=== PATIENT | male | born 1975 | race Caucasian/White ===

== ENCOUNTER 2017-02-09 09:33 | Emergency (ER) | payer MEDICAID ==
[2017-02-09] MEDS ORDERED: KETOROLAC 30 MG/ML VIAL IM ONE (10:52)
[2017-02-09] MEDS ORDERED: MAGNESIUM HYDROXIDE/AL HYDROX 30 ML, LIDOCAINE VISC 2% 200 MG PO ONE ×2 (10:52)
[2017-02-09 11:27] LABS: INFLUENZA A NEGATIVE (NEGATIVE); INFLUENZA B NEGATIVE (NEGATIVE)
--- NOTE | 2017-02-09 11:29 | Emergency Department Record ---
History of Present Illness - General Chief Complaint: Cough Stated Complaint: COUGH Time Seen by Provider: 02/09/17 10:43 Source: Patient Mode of Arrival: Ambulatory Limitations: No limitations - History of Present Illness Initial Comments: pt states he aspirated 2 days ago and now he is coughing and has pain w coughing that is burning. no fevers, sweats, chills. MD Complaint: Cough, Nasal congestion, Rhinorrhea Onset/Timin -: Days(s) Severity scale (1-10): 4 Consistency: Constant Improves With: Nothing Worsens With: Deep breaths Associated Symptoms: Denies other symptoms, Cough Treatments Prior to Arrival: Other - Related Data Home Medications Medication Instructions Recorded Confirmed Last Taken Multivitamin [Multi-Vitamin Daily] 1 each PO DAILY 11/01/14 02/09/17 02/09/17 Milk Thistle 150 mg PO TID 06/04/15 02/09/17 02/09/17 Previous Rx's Medication Instructions Recorded Amoxicillin/Potassium Clav 1 each PO BID #20 tablet 02/09/17 [Augmentin 875Mg/125Mg] Allergies Allergy/AdvReac Type Severity Reaction Status Date / Time atorvastatin calcium AdvReac Mild BODY ACHES Verified 09/29/16 22:02 [From Lipitor] ciprofloxacin [From Cipro] AdvReac Mild VOMITING Verified 09/29/16 22:02 ciprofloxacin HCl AdvReac Mild VOMITING Verified 09/29/16 22:02 [From Cipro] sulfamethoxazole AdvReac Mild VOMITING Verified 09/29/16 22:02 [From Bactrim] trimethoprim [From Bactrim] AdvReac Mild VOMITING Verified 09/29/16 22:02 Travel Screening - Travel/Exposure Within Last 30 Days Have you traveled within the last 30 days?: No - Travel/Exposure Within Last Year Have you traveled outside the [place] in the last year?: No - Additonal Travel Details Have you been exposed to anyone with a communicable illness?: No - Travel Symptoms Symptom Screening: None Review of Systems Reviewed: No additional complaints except as noted below Constitutional: Reports: As per HPI. Denies: Chills, Fever, Malaise, Night sweats, Weakness, Weight change Eyes: Reports: As per HPI. Denies: Eye discharge, Eye pain, Photophobia, Vision change ENT: Reports: As per HPI. Denies: Congestion, Dental pain, Ear pain, Epistaxis , Hearing loss, Throat pain Respiratory: Reports: As per HPI. Denies: Cough, Dyspnea, Hemoptysis, Stridor, Wheezes Cardiovascular: Reports: As per HPI. Denies: Arrhythmia, Chest pain, Dyspnea on exertion, Edema, Murmurs, Orthopnea, Palpitations, Paroxysmal nocturnal dyspnea, Rheumatic Fever, Syncope Endocrine: Reports: As per HPI. Denies: Fatigue, Heat or cold intolerance, Polydipsia, Polyuria Gastrointestinal: Reports: As per HPI. Denies: Abdominal pain, Constipation, Diarrhea, Hematemesis, Hematochezia, Melena, Nausea, Vomiting Genitourinary: Reports: As per HPI. Denies: Dysuria, Frequency, Hematuria, Incontinence, Retention, Testicular pain, Testicular mass, Urgency Musculoskeletal: Reports: As per HPI. Denies: Arthralgia, Back pain, Gout, Joint swelling, Myalgia, Neck pain Skin: Reports: As per HPI. Denies: Bruising, Change in color, Change in hair/ nails, Lesions, Pruritus, Rash Neurological: Reports: As per HPI. Denies: Abnormal gait, Confusion, Headache, Numbness, Paresthesias, Seizure, Tingling, Tremors, Vertigo, Weakness Psychiatric: Reports: As per HPI. Denies: Anxiety, Auditory hallucinations, Depression, Homicidal thoughts, Suicidal thoughts, Visual hallucinations Hematological/Lymphatic: Reports: As per HPI. Denies: Anemia, Blood Clots, Easy bleeding, Easy bruising, Swollen glands Past Medical History - SOCIAL HISTORY Smoking Status: Current every day smoker Alcohol Use: None Drug Use: None - RESPIRATORY Hx Respiratory Disorders: No - CARDIOVASCULAR Hx Cardio Disorders: No - NEURO Hx Neuro Disorders: No - GI Hx GI Disorders: Yes Hx Reflux: Yes Hx Hepatitis/Jaundice: Yes (Hep C) Hx Hiatal Hernia: Yes - Hx Genitourinary Disorders: Yes Comment:: one kidney-L - ENDOCRINE Hx Endocrine Disorders: No - MUSCULOSKELETAL Hx Musculoskeletal Disorders: No - PSYCH Hx Psych Problems: Yes Hx Depression: Yes - HEMATOLOGY/ONCOLOGY Hx Hematology/Oncology Disorders: No Family Medical History Any Significant Family History?: Yes Hx Cancer: Mother Hx Diabetes: Father Physical Exam - General General Appearance: Alert, Oriented x3, Cooperative, Mild distress - Head Head exam: Normal inspection - Eye Eye exam: Normal appearance, PERRL, EOMI Pupils: Normal accommodation - ENT ENT exam: Normal exam, Mucous membranes moist, Normal external ear exam, Normal orophraynx Ear exam: Normal external inspection. negative: External canal tenderness Nasal Exam: Normal inspection. negative: Discharge, Sinus tenderness Mouth exam: Normal external inspection, Tongue normal Teeth exam: Normal inspection. negative: Dental caries Throat exam: Normal inspection. negative: Tonsillar erythema, Tonsillar exudate - Neck Neck exam: Normal inspection, Full ROM. negative: Tenderness - Respiratory Respiratory exam: Normal lung sounds bilaterally. negative: Respiratory distress - Cardiovascular Cardiovascular Exam: Regular rate, Normal rhythm, Normal heart sounds - GI/Abdominal GI/Abdominal exam: Soft, Normal bowel sounds. negative: Tenderness - Rectal Rectal exam: Deferred - exam: Deferred - Extremities Extremities exam: Normal inspection, Full ROM, Normal capillary refill. negative: Tenderness - Back Back exam: Reports: Normal inspection, Full ROM. Denies: Muscle spasm, Rash noted, Tenderness - Neurological Neurological exam: Alert, CN II-XII intact, Normal gait, Oriented X3 - Psychiatric Psychiatric exam: Normal affect, Normal mood - Skin Skin exam: Dry, Intact, Normal color, Warm Course Vital Signs 02/09/17 10:27 Temperature 98.2 F Pulse Rate 85 Respiratory 20 Rate Blood Pressure 156/94 Pulse Ox 96 Disposition Disposition: Discharge Clinical Impression: Bronchitis Aspiration into respiratory tract Qualifiers: Encounter type: initial encounter Qualified Code(s): T17.908A - Unspecified foreign body in respiratory tract, part unspecified causing other injury, initial encounter Disposition: Home, Self-Care Condition: (1) Good Instructions: Acute Bronchitis (ED) Additional Instructions: follow up with family doctor. return sooner if worse. Prescriptions: Amoxicillin/Potassium Clav [Augmentin 875Mg/125Mg] 1 each PO BID #20 tablet Forms: Patient Portal Access
--- NOTE | 2017-02-12 08:34 | RADIOLOGY REPORT ---
EXAM: CHEST, TWO VIEWS HISTORY: ACUTE NONPRODUCTIVE COUGH. TECHNIQUE: Two views of the chest were obtained. Comparison: Chest x-ray 10/10/07. FINDINGS: The lungs are hyperinflated, otherwise clear. The cardiac silhouette is unremarkable. The diaphragm is slightly flattened. The osseous structures are unremarkable. IMPRESSION: EMPHYSEMA. NO ACUTE INTRATHORACIC PROCESS. JOB NUMBER: [id number] MTDD
== END 2017-02-09 11:44 | disposition home or self-care (01) ==
LOC: ER 09:33
DX: J20.9 Acute bronchitis, unspecified (principal); F17.210 Nicotine dependence, cigarettes, uncomplicated
CPT/HCPCS: 99283; 96372; 99284; 87400; 71020; J1885

== ENCOUNTER 2017-09-28 15:28 | Emergency (ER) | payer MEDICAID ==
--- NOTE | 2017-09-28 15:44 | Emergency Department Record ---
History of Present Illness - General Chief Complaint: Back Pain/Injury Stated Complaint: LOWER BACK PAIN Time Seen by Provider: 09/28/17 15:37 Source: Patient Mode of Arrival: Ambulatory Limitations: No limitations - History of Present Illness Initial Comments: 42 yo male presents with low back pain for two days. He reports he was walking on stairs and mis stepped. He did not fall but he twisted his back. His pain has been present since then. The pain is in the lumbar area and radiates to the hips. No weakness. No changes in bowel or bladder function. !0 years ago he did have lumbar surgery at L4 for a herniated disc. No intermediate manager issues. PCP [place]. Delmy Espinoza MD Complaint: Back pain, Back injury Onset/Timin -: Days(s) (2) Place: Work Severity: Moderate Quality: Aching Consistency: Constant Improves With: Sitting upright Worsens With: Movement, Walking Context: Fall, Turning/twisting Associated Symptoms: Denies other symptoms - Related Data Home Medications Medication Instructions Recorded Confirmed Last Taken Omeprazole 40 mg PO DAILY 09/28/17 09/28/17 1 Day Ago ~09/27/17 Previous Rx's Medication Instructions Recorded Cyclobenzaprine HCl [Flexeril] 10 mg PO TID #20 tablet 09/28/17 Hydrocodone/Acetaminophen [[place] 1 each PO Q8H #12 tablet 09/28/17 5-325 Tablet] Methylprednisolone [Medrol Dose 4 mg PO DAILY #1 tab.ds.pk 09/28/17 Pack] Allergies Allergy/AdvReac Type Severity Reaction Status Date / Time atorvastatin calcium AdvReac Mild BODY ACHES Verified 09/28/17 15:38 [From Lipitor] ciprofloxacin [From Cipro] AdvReac Mild VOMITING Verified 09/28/17 15:38 ciprofloxacin HCl AdvReac Mild VOMITING Verified 09/28/17 15:38 [From Cipro] sulfamethoxazole AdvReac Mild VOMITING Verified 09/28/17 15:38 [From Bactrim] trimethoprim [From Bactrim] AdvReac Mild VOMITING Verified 09/28/17 15:38 Travel Screening - Travel/Exposure Within Last 30 Days Have you traveled within the last 30 days?: No - Travel/Exposure Within Last Year Have you traveled outside the [place] in the last year?: No - Additonal Travel Details Have you been exposed to anyone with a communicable illness?: No - Travel Symptoms Symptom Screening: None Review of Systems Constitutional: Denies: Chills, Fever, Malaise, Weakness Eyes: Denies: Eye discharge ENT: Denies: Congestion, Throat pain Respiratory: Denies: Cough Cardiovascular: Denies: Chest pain, Syncope Endocrine: Denies: Fatigue Gastrointestinal: Denies: Abdominal pain, Diarrhea, Nausea, Vomiting Genitourinary: Denies: Dysuria, Frequency, Hematuria, Incontinence, Retention, Urgency Musculoskeletal: Reports: Back pain. Denies: Arthralgia, Joint swelling, Myalgia, Neck pain, Other Skin: Denies: Change in color Neurological: Denies: Abnormal gait, Confusion, Headache, Numbness, Paresthesias , Tingling, Tremors, Vertigo, Weakness Psychiatric: Denies: Anxiety Hematological/Lymphatic: Denies: Blood Clots, Easy bleeding, Easy bruising, Swollen glands Past Medical History - SOCIAL HISTORY Smoking Status: Current every day smoker Alcohol Use: None Drug Use: None - RESPIRATORY Hx Respiratory Disorders: No - CARDIOVASCULAR Hx Cardio Disorders: No - NEURO Hx Neuro Disorders: No - GI Hx GI Disorders: Yes Hx Reflux: Yes Hx Hepatitis/Jaundice: Yes (Hep C) Hx Hiatal Hernia: Yes - Hx Genitourinary Disorders: Yes Comment:: one kidney-L - ENDOCRINE Hx Endocrine Disorders: No - MUSCULOSKELETAL Hx Musculoskeletal Disorders: No - PSYCH Hx Psych Problems: Yes Hx Depression: Yes - HEMATOLOGY/ONCOLOGY Hx Hematology/Oncology Disorders: No Family Medical History Any Significant Family History?: Yes Hx Cancer: Mother Hx Diabetes: Father Physical Exam - General General Appearance: Alert, Oriented x3, Cooperative, No acute distress Limitations: No limitations - Head Head exam: Normal inspection - Eye Eye exam: Normal appearance. negative: Conjunctival injection - ENT ENT exam: Normal exam Ear exam: Normal external inspection Nasal Exam: Normal inspection Mouth exam: Normal external inspection - Neck Neck exam: Normal inspection - Rectal Rectal exam: Deferred - exam: Deferred - Extremities Extremities exam: Full ROM. negative: Calf tenderness, Joint swelling, Normal capillary refill, Pedal edema, Tenderness - Back Back exam: Reports: Normal inspection, Muscle spasm, Paraspinal tenderness, Tenderness. Denies: CVA tenderness (R), CVA tenderness (L), Rash noted, Vertebral tenderness Image of Body Front/Back: 1 - mild paraspinal tenderness bilateral - Neurological Neurological exam: Alert, Normal gait, Oriented X3, Other (Foot flexion and extension intact, steady gait, no foot drop). negative: Abnormal gait, Altered , Motor sensory deficit - Psychiatric Psychiatric exam: Normal affect, Normal mood - Skin Skin exam: Dry, Intact, Normal color, Warm Course Vital Signs 09/28/17 15:31 Temperature 98.1 F Pulse Rate 77 Respiratory 18 Rate Blood Pressure 142/94 Pulse Ox 97 - Reevaluation(s) Reevaluation #1: No neurologic findings on examination or by history DC home with supportive care. 09/28/17 15:42 Disposition Disposition: Discharge Clinical Impression: Lumbar spine strain Qualifiers: Encounter type: initial encounter Qualified Code(s): S39.012A - Strain of muscle, fascia and tendon of lower back, initial encounter Disposition: Home, Self-Care Condition: (1) Good Instructions: Low Back Strain (ED) Additional Instructions: Return to the ER if worse, uncontrolled pain, weakness, numbness or any new concerns Follow up with your doctor in the next week if the pain continues Prescriptions: Cyclobenzaprine HCl [Flexeril] 10 mg PO TID #20 tablet Hydrocodone/Acetaminophen [[place] 5-325 Tablet] 1 each PO Q8H #12 tablet Methylprednisolone [Medrol Dose Pack] 4 mg PO DAILY #1 tab.ds.pk Time of Disposition: 15:45 Quality - Quality Measures Quality Measures: N/A - Blood Pressure Screening Does Patient Have Any of the Following: No Blood Pressure Classification: Hypertensive Reading Systolic Measurement: 142 Diastolic Measurement: 94 Screening for High Blood Pressure: < Pre-Hypertensive BP, F/U Documented > [ G8950] Pre-Hypertensive Follow-up Interventions: Referral to alternative/primary care provider.
== END 2017-09-28 15:53 | disposition home or self-care (01) ==
LOC: ER 15:28
DX: S39.012A Strain of muscle, fascia and tendon of lower back, initial encounter (principal); X50.0XXA Overexertion from strenuous movement or load, initial encounter; Y90.0 Blood alcohol level of less than 20 mg/100 ml
CPT/HCPCS: 99282

== ENCOUNTER 2017-10-04 10:08 | Emergency (ER) | payer MEDICAID ==
[2017-10-04] MEDS ORDERED: KETOROLAC 30 MG/ML VIAL IM ONE (10:28)
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
--- NOTE | 2017-10-05 19:36 | RADIOLOGY REPORT ---
EXAM: LUMBAR SPINE / AP LAT HISTORY: BACK PAIN. TECHNIQUE: AP and lateral views of the lumbar spine are performed. FINDINGS: There is normal vertebral body height. There is mild degenerative change at L5-S1. No spondylolysis or listhesis. IMPRESSION: MILD DEGENERATIVE CHANGE AT L5-S1 LEVEL. THE REMAINDER OF THE EXAMINATION IS UNREMARKABLE. JOB NUMBER: [id number] MTDD
== END 2017-10-04 11:35 | disposition home or self-care (01) ==
LOC: ER 10:08
DX: S39.012A Strain of muscle, fascia and tendon of lower back, initial encounter (principal); X50.0XXA Overexertion from strenuous movement or load, initial encounter; Y92.009 Unspecified place in unspecified non-institutional (private) residence as the place of occurrence of the external cause
CPT/HCPCS: 99283; 96372; 99284; 72100; J1885

== ENCOUNTER 2017-11-21 22:20 | Emergency (ER) | payer MEDICAID ==
[2017-11-21 23:04] LABS: BASO % 0.5 % (0-6); EOS % 2.1 % (0-6); GRAN % 67.4 % (47-80); HEMOGLOBIN 13.6 gm/dl (14.0-18.0); LYMPH % 16.8 % (16-45); MEAN CELL VOLUME 84.6 fl (81-97); MEAN CORPUSCULAR HEMOGLOBIN 29.5 pg (27-33); MEAN CORPUSCULAR HGB CONC 34.9 g/dl (32-36); MEAN PLATELET VOLUME 9.8 fl (7.4-10.4); MONO % 13.2 % (0-9); PLATELET COUNT 207 K/uL (130-400); RED BLOOD COUNT 4.61 M/uL (4.40-5.70); RED CELL DISTRIBUTION WIDTH 13.1 % (11.5-14.5); WHITE BLOOD COUNT W/O DIFF 5.8 K/uL (4.2-12.2)
[2017-11-21] MEDS ORDERED: 0.9 % SODIUM CHLORIDE 1,000 ML BAG IV ONE (23:11)
[2017-11-21 23:18] LABS: BLOOD UREA NITROGEN 22 mg/dL (6-20); EST GLOMERULAR FILTRATION RATE > 60 mL/min
[2017-11-21 23:21] LABS: GLUCOSE,RANDOM 114 mg/dL (74-109)
[2017-11-21 23:23] LABS: ALT/SGPT 101 U/L (<41); AST/SGOT 108 U/L (10.0-50.0)
[2017-11-21 23:24] LABS: ALB/GLOB RATIO 1.2 (1.1-1.8); ALBUMIN 3.8 g/dL (4.0-5.0); ALKALINE PHOSPHATASE 104 U/L (40-129)
--- NOTE | 2017-11-21 23:26 | Emergency Department Record ---
History of Present Illness - General Chief Complaint: Dizziness Stated Complaint: MON, LIGHT HEADED FEELS WOZZIE Time Seen by Provider: 11/21/17 22:48 Source: Patient Mode of Arrival: Ambulatory Limitations: No limitations - History of Present Illness Initial Comments: pt states he feels light headed and 'woozy'. he states it started a few hours ago. he states turning his head make s it worse. he denies the room spinning and denies difficulty he has had no injury to his head and has no new meds.walking or weakness or numbness. he has no headache. Onset/Timin -: Hour(s) Timing: Sudden onset Description: Lightheadedness, Nausea, Off-balance History of Same: No Severity: Mild Improves With: Remaining still Worsens With: Position Associated Symptoms: Cough, Fever/chills, Weakness - [place] Coma Scale Eye Response: (4) Open spontaneously Motor Response: (6) Obeys commands Verbal Response: (5) Oriented Cm Total: 15 - Symptoms of Stroke Symptoms of stroke: Dizziness - Related Data Home Medications Medication Instructions Recorded Confirmed Last Taken Omeprazole 20 mg PO DAILY 11/21/17 11/21/17 11/21/17 Allergies Allergy/AdvReac Type Severity Reaction Status Date / Time atorvastatin calcium AdvReac Mild BODY ACHES Verified 10/04/17 10:14 [From Lipitor] sulfamethoxazole AdvReac Mild VOMITING Verified 10/04/17 10:14 [From Bactrim] trimethoprim [From Bactrim] AdvReac Mild VOMITING Verified 10/04/17 10:14 Travel Screening - Travel/Exposure Within Last 30 Days Have you traveled within the last 30 days?: No - Travel Symptoms Symptom Screening: Weakness, Chills Review of Systems Reviewed: No additional complaints except as noted below Constitutional: Reports: As per HPI. Denies: Chills, Fever, Malaise, Night sweats, Weakness, Weight change Eyes: Reports: As per HPI. Denies: Eye discharge, Eye pain, Photophobia, Vision change ENT: Reports: As per HPI. Denies: Congestion, Dental pain, Ear pain, Epistaxis , Hearing loss, Throat pain Respiratory: Reports: As per HPI. Denies: Cough, Dyspnea, Hemoptysis, Stridor, Wheezes Cardiovascular: Reports: As per HPI. Denies: Arrhythmia, Chest pain, Dyspnea on exertion, Edema, Murmurs, Orthopnea, Palpitations, Paroxysmal nocturnal dyspnea, Rheumatic Fever, Syncope Endocrine: Reports: As per HPI. Denies: Fatigue, Heat or cold intolerance, Polydipsia, Polyuria Gastrointestinal: Reports: As per HPI, Nausea. Denies: Abdominal pain, Constipation, Diarrhea, Hematemesis, Hematochezia, Melena, Vomiting Genitourinary: Reports: As per HPI. Denies: Dysuria, Frequency, Hematuria, Incontinence, Retention, Testicular pain, Testicular mass, Urgency Musculoskeletal: Reports: As per HPI. Denies: Arthralgia, Back pain, Gout, Joint swelling, Myalgia, Neck pain Skin: Reports: As per HPI. Denies: Bruising, Change in color, Change in hair/ nails, Lesions, Pruritus, Rash Neurological: Reports: As per HPI, Other (lightheadedness). Denies: Abnormal gait, Confusion, Headache, Numbness, Paresthesias, Seizure, Tingling, Tremors, Vertigo, Weakness Psychiatric: Reports: As per HPI. Denies: Anxiety, Auditory hallucinations, Depression, Homicidal thoughts, Suicidal thoughts, Visual hallucinations Hematological/Lymphatic: Reports: As per HPI. Denies: Anemia, Blood Clots, Easy bleeding, Easy bruising, Swollen glands Past Medical History - SOCIAL HISTORY Smoking Status: Current every day smoker Alcohol Use: None Drug Use: None - RESPIRATORY Hx Respiratory Disorders: Yes Hx Asthma: Yes - CARDIOVASCULAR Hx Cardio Disorders: No - NEURO Hx Neuro Disorders: No - GI Hx GI Disorders: Yes Hx Reflux: Yes Hx Hepatitis/Jaundice: Yes (Hep C) Hx Hiatal Hernia: Yes - Hx Genitourinary Disorders: Yes Comment:: one kidney-L - ENDOCRINE Hx Endocrine Disorders: No - MUSCULOSKELETAL Hx Musculoskeletal Disorders: No - PSYCH Hx Psych Problems: Yes Hx Depression: Yes - HEMATOLOGY/ONCOLOGY Hx Hematology/Oncology Disorders: No Family Medical History Any Significant Family History?: Yes Family Hx Comment (NOT TO BE USED IN PLACE OF ITEMS BELOW): Sister - Mckeon's syndrome Hx Cancer: Mother, Children *Cancer Comment: son with Leukemia Hx Diabetes: Father Physical Exam - General General Appearance: Alert, Oriented x3, Cooperative, Mild distress - Head Head exam: Normal inspection - Eye Eye exam: Normal appearance, PERRL, EOMI Pupils: Normal accommodation - ENT ENT exam: Normal exam, Mucous membranes moist, Normal external ear exam, Normal orophraynx, TM's normal bilaterally Ear exam: Normal external inspection. negative: External canal tenderness Nasal Exam: Normal inspection. negative: Discharge, Sinus tenderness Mouth exam: Normal external inspection, Tongue normal Teeth exam: Normal inspection. negative: Dental caries Throat exam: Normal inspection. negative: Tonsillar erythema, Tonsillar exudate - Neck Neck exam: Normal inspection, Full ROM. negative: Tenderness - Respiratory Respiratory exam: Normal lung sounds bilaterally. negative: Respiratory distress - Cardiovascular Cardiovascular Exam: Regular rate, Normal rhythm, Normal heart sounds - GI/Abdominal GI/Abdominal exam: Soft, Normal bowel sounds. negative: Tenderness - Rectal Rectal exam: Deferred - exam: Deferred - Extremities Extremities exam: Normal inspection, Full ROM, Normal capillary refill. negative: Tenderness - Back Back exam: Reports: Normal inspection, Full ROM. Denies: Muscle spasm, Rash noted, Tenderness - Neurological Neurological exam: Alert, CN II-XII intact, Normal gait, Oriented X3 - Psychiatric Psychiatric exam: Normal affect, Normal mood - Skin Skin exam: Dry, Intact, Normal color, Warm Course Vital Signs 11/21/17 11/21/17 22:27 22:28 Temperature 98.3 F 98.3 F Pulse Rate [ 91 H Pulse Ox Probe] Respiratory 20 Rate Blood Pressure 146/94 [Left Arm] Pulse Ox 98 - Reevaluation(s) Reevaluation #1: 11/22/17 00:47 pt feels better Medical Decision Making - Lab Data Result diagrams: 11/21/17 22:45 11/21/17 22:45 Lab Results 11/21/17 Range/Units 22:45 WBC 5.8 (4.2-12.2) K/uL RBC 4.61 (4.40-5.70) M/uL Hgb 13.6 L (14.0-18.0) gm/dl Hct 39.0 L (42.0-52.0) % MCV 84.6 (81-97) fl MCH 29.5 (27-33) pg MCHC 34.9 (32-36) g/dl RDW 13.1 (11.5-14.5) % Plt Count 207 (130-400) K/uL MPV 9.8 (7.4-10.4) fl Gran % 67.4 (47-80) % Lymphocytes % 16.8 (16-45) % Monocytes % 13.2 H (0-9) % Eosinophils % 2.1 (0-6) % Basophils % 0.5 (0-6) % Disposition Disposition: Discharge Clinical Impression: Lightheaded, Wooziness Disposition: Home, Self-Care Condition: (1) Good Instructions: Dizziness (ED) Additional Instructions: follow up with family doctor. return sooner if worse. push fluids. rest Forms: Patient Portal Access Quality - Quality Measures Quality Measures: N/A - Blood Pressure Screening Does Patient Have Any of the Following: No Blood Pressure Classification: Pre-Hypertensive BP Reading Systolic Measurement: 139 Diastolic Measurement: 87 Screening for High Blood Pressure: < Pre-Hypertensive BP, F/U Documented > [ G8950] Pre-Hypertensive Follow-up Interventions: Follow-up with rescreen every year.
[2017-11-21 23:33] LABS: URINE APPEARANCE CLEAR; URINE BILIRUBIN NEGATIVE (NEGATIVE); URINE BLOOD NEGATIVE (NEGATIVE); URINE COLOR YELLOW; URINE GLUCOSE (UA) NEGATIVE (NEGATIVE); URINE KETONE NEGATIVE (NEGATIVE); URINE LEUKOCYTE ESTERASE NEGATIVE (NEGATIVE); URINE NITRITE NEGATIVE (NEGATIVE); URINE PROTEIN NEGATIVE (NEGATIVE)
[2017-11-21 23:35] LABS: AMPHETAMINE SCREEN URINE NOT DETECTED; BARBITURATE SCREEN URINE NOT DETECTED; BENZODIAZEPINE SCREEN URINE NOT DETECTED; COCAINE SCREEN URINE NOT DETECTED; METHADONE SCREEN URINE NOT DETECTED; METHAMPHETAMINE SCREEN NOT DETECTED; OPIATE SCREEN URINE NOT DETECTED; OXYCODONE SCREEN URINE NOT DETECTED; PHENCYCLIDINE SCREEN URINE NOT DETECTED; PROPOXYPHENE SCREEN URINE NOT DETECTED; THC SCREEN URINE NOT DETECTED; TRICYCLIC ANTIDEPRESSANT SCRN NOT DETECTED
[2017-11-22] MEDS ORDERED: ACETAMINOPHEN 500 MG TABLET PO ONE (00:20)
[2017-11-22] MEDS ORDERED: KETOROLAC 30 MG/ML VIAL IVP ONE (00:21)
--- NOTE | 2017-11-23 18:05 | CT SCAN REPORT ---
EXAM: CT SCAN HEAD WO CONTRAST HISTORY: LIGHTHEADEDNESS. MENTAL STATUS CHANGE. TECHNIQUE: Routine noncontrast CT examination of the head. COMPARISON: None. FINDINGS: The ventricles and subarachnoid spaces are normal in size. No area of abnormally increased or decreased attenuation is noted throughout the brain substance. No abnormal extraaxial fluid collection is seen. No skull fracture is identified. The visualized paranasal sinuses and mastoid air cells are clear with the exception of opacification of a single left ethmoid air cell. The orbits, as visualized, are unremarkable. IMPRESSION: 1. NEGATIVE NONCONTRAST CT APPEARANCE OF THE BRAIN. 2. OPACIFICATION OF A SINGLE LEFT ETHMOID AIR CELL. JOB NUMBER: [id number] MTDD
== END 2017-11-22 01:05 | disposition home or self-care (01) ==
LOC: ER 22:20
DX: R42 Dizziness and giddiness (principal); R41.82 Altered mental status, unspecified; R11.0 Nausea; R05 Cough; R53.1 Weakness
CPT/HCPCS: 99284 ×2; 96374; 96361; 85025; 80053; 81003; 80305; 70450; 93005; 93010; G0480; J1885; 80320; J7030

== ENCOUNTER 2017-11-22 21:03 | Emergency (ER) | payer MEDICAID ==
[2017-11-22] MEDS ORDERED: ACETAMINOPHEN 500 MG TABLET PO ONE (21:35)
[2017-11-22] MEDS ORDERED: KETOROLAC 30 MG/ML VIAL IVP ONE (21:35)
--- NOTE | 2017-11-22 21:39 | Emergency Department Record ---
History of Present Illness - General Chief Complaint: Shortness of breath Stated Complaint: ROSA Time Seen by Provider: 11/22/17 21:04 Source: Patient Mode of Arrival: Ambulatory Limitations: No limitations - History of Present Illness Initial Comments: 42 yo male presents to ED for evaluation of shortness and breath and fever symptoms tonight. Patient reports that he was seen last night for dizziness symptoms and "feeling woozy", reports that his cough was not as sever last night. Patient reports chills, body aches, and weakness today. Patient reports a history of chronic back pain and hepatitis C. MD Complaint: Shortness of breath Onset/Timin -: Days(s) Severity: Moderate Consistency: Constant Worsens With: Nothing Known History Of: Asthma, Recurrent pneumonia Associated Symptoms: Cough, Fever Treatments Prior to Arrival: None - Related Data Home Oxygen Therapy: No Previous Rx's Medication Instructions Recorded Doxycycline Hyclate [Doxycycline] 200 mg PO BID #18 cap 11/22/17 Allergies Allergy/AdvReac Type Severity Reaction Status Date / Time atorvastatin calcium AdvReac Mild BODY ACHES Verified 10/04/17 10:14 [From Lipitor] sulfamethoxazole AdvReac Mild VOMITING Verified 10/04/17 10:14 [From Bactrim] trimethoprim [From Bactrim] AdvReac Mild VOMITING Verified 10/04/17 10:14 Travel Screening - Travel/Exposure Within Last 30 Days Have you traveled within the last 30 days?: No Review of Systems Constitutional: Reports: Chills, Fever, Malaise, Weakness. Denies: Night sweats Eyes: Denies: Eye discharge, Eye pain ENT: Reports: Congestion. Denies: Ear pain, Epistaxis Respiratory: Reports: Cough, Dyspnea Cardiovascular: Denies: Chest pain, Edema Endocrine: Reports: Fatigue. Denies: Heat or cold intolerance Gastrointestinal: Denies: Abdominal pain, Vomiting Genitourinary: Denies: Testicular pain, Testicular mass Musculoskeletal: Reports: Myalgia. Denies: Arthralgia, Back pain, Gout, Joint swelling Skin: Denies: Bruising, Change in color Neurological: Reports: Headache. Denies: Abnormal gait, Confusion, Seizure Psychiatric: Denies: Anxiety Hematological/Lymphatic: Denies: Anemia, Blood Clots Past Medical History - SOCIAL HISTORY Smoking Status: Current every day smoker Alcohol Use: None Drug Use: None - RESPIRATORY Hx Respiratory Disorders: Yes Hx Asthma: Yes - CARDIOVASCULAR Hx Cardio Disorders: No - NEURO Hx Neuro Disorders: No - GI Hx GI Disorders: Yes Hx Reflux: Yes Hx Hepatitis/Jaundice: Yes (Hep C) Hx Hiatal Hernia: Yes - Hx Genitourinary Disorders: Yes Comment:: one kidney-L - ENDOCRINE Hx Endocrine Disorders: No - MUSCULOSKELETAL Hx Musculoskeletal Disorders: No - PSYCH Hx Psych Problems: Yes Hx Depression: Yes - HEMATOLOGY/ONCOLOGY Hx Hematology/Oncology Disorders: No Family Medical History Any Significant Family History?: Yes Family Hx Comment (NOT TO BE USED IN PLACE OF ITEMS BELOW): Sister - Mckeon's syndrome Hx Cancer: Mother, Children *Cancer Comment: son with Leukemia Hx Diabetes: Father Physical Exam - General General Appearance: Alert, Oriented x3, Cooperative, Moderate distress Limitations: No limitations - Head Head exam: Atraumatic, Normocephalic, Normal inspection Head exam detail: negative: Abrasion, Contusion, Cedillo's sign, General tenderness, Hematoma, Laceration - Eye Eye exam: Normal appearance. negative: Conjunctival injection, Periorbital swelling, Periorbital tenderness, Scleral icterus - ENT Ear exam: negative: Auricular hematoma, Auricular trauma Nasal Exam: negative: Active bleeding, Discharge, Dried blood, Foreign body Mouth exam: negative: Drooling, Laceration, Muffled voice, Tongue elevation - Neck Neck exam: Normal inspection. negative: Meningismus, Tenderness - Respiratory Respiratory exam: negative: Rales, Respiratory distress, Rhonchi, Stridor - Cardiovascular Cardiovascular Exam: Normal rhythm, Normal heart sounds, Tachycardia - GI/Abdominal GI/Abdominal exam: Soft. negative: Rebound, Rigid, Tenderness - Rectal Rectal exam: Deferred - exam: Deferred - Extremities Extremities exam: Normal inspection. negative: Pedal edema, Tenderness - Back Back exam: Denies: CVA tenderness (R), CVA tenderness (L) - Neurological Neurological exam: Alert, Normal gait, Oriented X3 - Psychiatric Psychiatric exam: Normal affect, Normal mood - Skin Skin exam: Normal color. negative: Abrasion Type of lesion: negative: abrasion Course Vital Signs 11/22/17 11/22/17 21:06 21:14 Temperature 100.8 F H Pulse Rate 107 H Pulse Rate [ 113 H [employer] ] Respiratory 26 H 20 Rate Blood Pressure 136/97 [Left Arm] Pulse Ox 94 L 98 - Reevaluation(s) Reevaluation #1: 11/22/17 21:40 EKG: Sinus tachycardia normal intervals, low voltage anteriorly T wave inversions V1-V3 Overall unchanged from 11/21/17 Reevaluation #2: 11/22/17 22:24 CXR: No acute process Laboratory studies were reviewed, mild elevation AST/ALT c/w hepatitis, labs are otherwise grossly unremarkable for an acute process. UA pending. Reevaluation #3: 11/22/17 23:12 UA reviewed and appears negative for an acute process. Temperature is down to 99.3, pulse improved to 98. Will treat for probable CAP with doxycycline with instructions to return in 3-5 days as directed. Medical Decision Making - Lab Data Result diagrams: 11/22/17 21:40 11/22/17 21:40 Disposition Disposition: Discharge Clinical Impression: Fever Qualifiers: Fever type: unspecified Qualified Code(s): R50.9 - Fever, unspecified CAP (community acquired pneumonia) Qualifiers: Laterality: unspecified laterality Qualified Code(s): J18.9 - Pneumonia, unspecified organism Disposition: Home, Self-Care Condition: (2) Stable Instructions: Community Acquired Pneumonia (ED) Additional Instructions: Return to ED if your symptoms worsen or if you have any concerns. Doxycycline as directed. Follow-up with your family doctor in 3-5 days as directed. Prescriptions: Doxycycline Hyclate [Doxycycline] 200 mg PO BID #18 cap Forms: Patient Portal Access Time of Disposition: 23:14 Quality - Quality Measures Quality Measures: N/A - Blood Pressure Screening Does Patient Have Any of the Following: No Blood Pressure Classification: Pre-Hypertensive BP Reading Systolic Measurement: 131 Diastolic Measurement: 81 Screening for High Blood Pressure: < Pre-Hypertensive BP, F/U Documented > [ G8950] Pre-Hypertensive Follow-up Interventions: Referral to alternative/primary care provider.
[2017-11-22] MEDS ORDERED: 0.9 % SODIUM CHLORIDE 1000ML 1,000 ML IV SCH (21:45)
[2017-11-22 21:47] LABS: INFLUENZA A NEGATIVE (NEGATIVE); INFLUENZA B NEGATIVE (NEGATIVE)
[2017-11-22 21:51] LABS: BASO % 0.4 % (0-6); EOS % 1.2 % (0-6); GRAN % 76.3 % (47-80); HEMOGLOBIN 13.8 gm/dl (14.0-18.0); LYMPH % 11.3 % (16-45); MEAN CELL VOLUME 84.2 fl (81-97); MEAN CORPUSCULAR HEMOGLOBIN 29.8 pg (27-33); MEAN CORPUSCULAR HGB CONC 35.4 g/dl (32-36); MEAN PLATELET VOLUME 9.8 fl (7.4-10.4); MONO % 10.8 % (0-9); PLATELET COUNT 206 K/uL (130-400); RED BLOOD COUNT 4.63 M/uL (4.40-5.70); RED CELL DISTRIBUTION WIDTH 13.1 % (11.5-14.5); WHITE BLOOD COUNT W/O DIFF 5.7 K/uL (4.2-12.2)
[2017-11-22 22:04] LABS: BLOOD UREA NITROGEN 20 mg/dL (6-20); CREATININE 1.1 mg/dL (0.7-1.2); EST GLOMERULAR FILTRATION RATE > 60 mL/min
[2017-11-22 22:06] LABS: GLUCOSE,RANDOM 116 mg/dL (74-109)
[2017-11-22 22:09] LABS: ALB/GLOB RATIO 1.2 (1.1-1.8); ALBUMIN 3.8 g/dL (4.0-5.0); ALKALINE PHOSPHATASE 87 U/L (40-129); ALT/SGPT 102 U/L (<41); AST/SGOT 117 U/L (10.0-50.0)
[2017-11-22 23:04] LABS: URINE APPEARANCE CLEAR; URINE BILIRUBIN NEGATIVE (NEGATIVE); URINE BLOOD NEGATIVE (NEGATIVE); URINE COLOR YELLOW; URINE GLUCOSE (UA) NEGATIVE (NEGATIVE); URINE KETONE TRACE (NEGATIVE); URINE LEUKOCYTE ESTERASE NEGATIVE (NEGATIVE); URINE NITRITE NEGATIVE (NEGATIVE); URINE PROTEIN NEGATIVE (NEGATIVE)
[2017-11-22] MEDS ORDERED: DOXYCYCLINE HYCLATE 100 MG CAPSULE PO ONE (23:17)
--- NOTE | 2017-11-23 20:45 | RADIOLOGY REPORT ---
EXAM: CHEST 2 VIEWS HISTORY: DIFFICULTY BREATHING. TECHNIQUE: Frontal and lateral views of the chest were performed. COMPARISON: 02/09/2017. FINDINGS: Heart size is normal. No pulmonary vascular congestion. No infiltrate or pleural effusion. The osseous structures are normal. IMPRESSION: NO ACUTE DISEASE PROCESS. JOB NUMBER: [id number] MTDD
== END 2017-11-22 23:26 | disposition home or self-care (01) ==
LOC: ER 21:03
DX: J18.9 Pneumonia, unspecified organism (principal); R06.02 Shortness of breath; R50.81 Fever presenting with conditions classified elsewhere; F17.210 Nicotine dependence, cigarettes, uncomplicated
CPT/HCPCS: 99284 ×2; 96374; 85025; 80053; 81003; 87400; 71046; 94640; 93005; 93010; J1885; J7030

== ENCOUNTER 2017-11-25 17:04 | Observation (INO) | payer MEDICAID ==
[2017-11-25] MEDS ORDERED: IPRATROPIUM/ALBUTEROL (0.5MG/3MG) NEB INH ONE (18:32)
--- NOTE | 2017-11-25 18:32 | Emergency Department Record ---
History of Present Illness - General Chief Complaint: Difficulty Breathing Stated Complaint: ROSA Time Seen by Provider: 11/25/17 17:09 Source: Patient Mode of Arrival: Wheelchair Limitations: No limitations - History of Present Illness Initial Comments: 42 yo male returns to ED for evaluation of difficulty ion breathing symptoms, recently seen and treated for possible early CAP. Patient reports that he has been using his inhaler several times a day without improvement, denies fevers/ chills but does report productive cough symptoms. Patient believes that his asthma may be acting up as a result. MD Complaint: Shortness of breath Onset/Timin -: Days(s) Severity: Moderate Consistency: Constant Improves With: Nothing Worsens With: Nothing Known History Of: Asthma Context: Recent URI Associated Symptoms: Denies other symptoms Treatments Prior to Arrival: Bronchodilator - Related Data Home Oxygen Therapy: No Home Medications Medication Instructions Recorded Confirmed Last Taken Nicotine [Nicotine Patch] 1 each TD ASDIR 11/25/17 11/25/17 11/25/17 Previous Rx's Medication Instructions Recorded Doxycycline Hyclate [Doxycycline] 200 mg PO BID #18 cap 11/22/17 Allergies Allergy/AdvReac Type Severity Reaction Status Date / Time atorvastatin calcium AdvReac Mild BODY ACHES Verified 11/25/17 17:14 [From Lipitor] sulfamethoxazole AdvReac Mild VOMITING Verified 11/25/17 17:14 [From Bactrim] trimethoprim [From Bactrim] AdvReac Mild VOMITING Verified 11/25/17 17:14 Travel Screening - Travel/Exposure Within Last 30 Days Have you traveled within the last 30 days?: No - Travel/Exposure Within Last Year Have you traveled outside the [place] in the last year?: No - Additonal Travel Details Have you been exposed to anyone with a communicable illness?: No - Travel Symptoms Symptom Screening: None Review of Systems Constitutional: Denies: Chills, Fever, Malaise, Night sweats Eyes: Denies: Eye discharge, Eye pain ENT: Reports: Congestion. Denies: Ear pain, Epistaxis Respiratory: Reports: Cough Cardiovascular: Denies: Chest pain, Dyspnea on exertion Endocrine: Denies: Fatigue, Heat or cold intolerance Gastrointestinal: Denies: Abdominal pain, Nausea, Vomiting Genitourinary: Denies: Incontinence, Retention Musculoskeletal: Denies: Arthralgia, Back pain Skin: Denies: Bruising, Change in color Neurological: Denies: Abnormal gait, Confusion, Headache, Tingling Psychiatric: Denies: Anxiety Hematological/Lymphatic: Denies: Anemia, Blood Clots Past Medical History - SOCIAL HISTORY Smoking Status: Current every day smoker Alcohol Use: None Drug Use: None - RESPIRATORY Hx Respiratory Disorders: Yes Hx Asthma: Yes Hx Pneumonia: Yes - CARDIOVASCULAR Hx Cardio Disorders: No - NEURO Hx Neuro Disorders: No - GI Hx GI Disorders: Yes Hx Reflux: Yes Hx Hepatitis/Jaundice: Yes (Hep C) Hx Hiatal Hernia: Yes - Hx Genitourinary Disorders: Yes Comment:: one kidney-L - ENDOCRINE Hx Endocrine Disorders: No - MUSCULOSKELETAL Hx Musculoskeletal Disorders: No - PSYCH Hx Psych Problems: Yes Hx Depression: Yes - HEMATOLOGY/ONCOLOGY Hx Hematology/Oncology Disorders: No Family Medical History Any Significant Family History?: No Family Hx Comment (NOT TO BE USED IN PLACE OF ITEMS BELOW): Sister - Mckeon's syndrome Hx Cancer: Mother, Children *Cancer Comment: son with Leukemia Hx Diabetes: Father Physical Exam - General General Appearance: Alert, Oriented x3, Cooperative, Mild distress Limitations: No limitations - Head Head exam: Atraumatic, Normocephalic, Normal inspection Head exam detail: negative: Abrasion, Contusion, Cedillo's sign, General tenderness, Hematoma, Laceration - Eye Eye exam: Normal appearance. negative: Conjunctival injection, Periorbital swelling, Periorbital tenderness, Scleral icterus - ENT Ear exam: negative: Auricular hematoma, Auricular trauma Nasal Exam: negative: Active bleeding, Discharge, Dried blood, Sinus tenderness Mouth exam: negative: Drooling, Laceration, Tongue elevation - Neck Neck exam: Normal inspection. negative: Meningismus, Tenderness - Respiratory Respiratory exam: Decreased breath sounds. negative: Respiratory distress, Rhonchi, Stridor, Wheezes - Cardiovascular Cardiovascular Exam: Regular rate, Normal rhythm, Normal heart sounds - GI/Abdominal GI/Abdominal exam: Soft. negative: Pulsatile mass, Rebound, Rigid, Tenderness - Rectal Rectal exam: Deferred - exam: Deferred - Extremities Extremities exam: Normal inspection. negative: Calf tenderness, Pedal edema, Tenderness - Back Back exam: Denies: CVA tenderness (R), CVA tenderness (L) - Neurological Neurological exam: Alert, Normal gait, Oriented X3 - Psychiatric Psychiatric exam: Normal affect, Normal mood - Skin Skin exam: negative: Abrasion Type of lesion: negative: abrasion Course Vital Signs 11/25/17 17:05 Temperature 98.1 F Pulse Rate 76 Respiratory 18 Rate Blood Pressure 117/75 Pulse Ox 96 - Reevaluation(s) Reevaluation #1: 11/25/17 19:17 Labs reviewed, WBC 3.5 with 47% lymphocytes. Mild elevation AST/ALT c.w hepatitis C. Influenza was negative 11/22/17. Reevaluation #2: 11/25/17 19:28 EKG: NSR 72 Normal axis, normal intervals T wave inversions V1-V3 Unchanged from 11/22/17 Reevaluation #3: 11/25/17 19:48 CXR: No acute process Patient was updated on all results, reports little improvement following duoneb and IV solumedrol. Discussed outpatient treatment for observation in the hospital as this is the patient's 3rd evaluation in the ED, will admit for further evaluation. Case was discussed with Dr. Beal, will admit for further evaluation. Medical Decision Making - Lab Data Result diagrams: 11/25/17 18:38 11/25/17 18:38 Disposition Disposition: Admit Clinical Impression: Asthma exacerbation Qualifiers: Asthma severity: mild Asthma persistence: intermittent Qualified Code(s): J45.21 - Mild intermittent asthma with (acute) exacerbation URI (upper respiratory infection) Qualifiers: URI type: unspecified URI Qualified Code(s): J06.9 - Acute upper respiratory infection, unspecified Disposition: Still a Patient at [facility] Decision to Admit: Admit from ER Decision to Admit Date: 11/25/17 Decision to Admit Time: 19:53 Condition: (2) Stable Forms: Patient Portal Access Time of Disposition: 19:53 Quality - Quality Measures Quality Measures: N/A - Blood Pressure Screening Does Patient Have Any of the Following: No Blood Pressure Classification: Normal BP Reading Systolic Measurement: 117 Diastolic Measurement: 75 Screening for High Blood Pressure: < Normal BP, F/U Not Required > [G8783]
[2017-11-25 18:45] LABS: BASO % 0.6 % (0-6); EOS % 8.6 % (0-6); GRAN % 32.3 % (47-80); HEMOGLOBIN 13.6 gm/dl (14.0-18.0); LYMPH % 47.8 % (16-45); MEAN CELL VOLUME 84.6 fl (81-97); MEAN CORPUSCULAR HEMOGLOBIN 29.5 pg (27-33); MEAN CORPUSCULAR HGB CONC 34.9 g/dl (32-36); MEAN PLATELET VOLUME 9.8 fl (7.4-10.4); MONO % 10.7 % (0-9); PLATELET COUNT 226 K/uL (130-400); RED BLOOD COUNT 4.61 M/uL (4.40-5.70); RED CELL DISTRIBUTION WIDTH 13.3 % (11.5-14.5); WHITE BLOOD COUNT W/O DIFF 3.5 K/uL (4.2-12.2)
[2017-11-25] MEDS ORDERED: METHYLPREDNISOLONE PF 125MG/VIAL IVP SCH (18:45)
[2017-11-25 18:55] LABS: BLOOD UREA NITROGEN 21 mg/dL (6-20); CREATININE 0.9 mg/dL (0.7-1.2); EST GLOMERULAR FILTRATION RATE > 60 mL/min
[2017-11-25 18:56] LABS: TOTAL PROTEIN 7.2 g/dL (6.6-8.7)
[2017-11-25 18:58] LABS: GLUCOSE,RANDOM 116 mg/dL (74-109)
[2017-11-25 19:01] LABS: ALB/GLOB RATIO 1.1 (1.1-1.8); ALBUMIN 3.7 g/dL (4.0-5.0); ALKALINE PHOSPHATASE 85 U/L (40-129); ALT/SGPT 79 U/L (<41); AST/SGOT 101 U/L (10.0-50.0)
[2017-11-25] MEDS ORDERED: 0.9 % SODIUM CHLORIDE 1000ML 1,000 ML IV PRN (20:50)
[2017-11-25] MEDS ORDERED: NICOTINE14 MG/24 HOUR PATCH TD SCH (20:50)
[2017-11-25] MEDS ORDERED: ALBUTEROL SULFATE (0.083%) 2.5 MG/3 ML NEB INH PRN (20:50)
[2017-11-25] MEDS ORDERED: DOXYCYCLINE HYCLATE 100 MG CAPSULE PO SCH (22:00)
[2017-11-25] MEDS ORDERED: PANTOPRAZOLE SODIUM 40 MG TABLET PO SCH (22:00)
[2017-11-25] MEDS: PROPRANOLOL HCL 10 MG TABLET PO SCH ×2 (22:29→22:35)
[2017-11-25] MEDS: IPRATROPIUM/ALBUTEROL (0.5MG/3MG) NEB INH SCH (22:44)
[2017-11-26] MEDS: IPRATROPIUM/ALBUTEROL (0.5MG/3MG) NEB INH SCH ×2 (06:11→09:56)
--- NOTE | 2017-11-26 07:24 | RADIOLOGY REPORT ---
EXAM: CHEST, TWO VIEWS HISTORY: SHORTNESS OF BREATH WITH EXERTION. TECHNIQUE: Upright PA and lateral views of the chest were obtained. Comparison: Two view chest radiographic examination dated 11/22/17. FINDINGS: The heart is normal in size and the pulmonary vasculature is nondilated. No new confluent air space opacity is seen nor is there costophrenic angle blunting or pneumothorax. Mild degenerative end plate changes are scattered throughout the visualized spine and there are mild degenerative changes of the shoulder girdles. IMPRESSION: NO CONVINCING EVIDENCE OF ACUTE CARDIOPULMONARY DISEASE WITHOUT SIGNIFICANT CHANGE SINCE 11/22/17. NOT MENTIONED ABOVE IS REDEMONSTRATION OF MINOR LINEAR SCARRING VERSUS ATELECTASIS AT THE ANTERIOR LUNG BASE LEVEL. THE LUNGS DO APPEAR MILDLY HYPERINFLATED. JOB NUMBER: [id number] [facility]
--- NOTE | 2017-11-26 07:34 | History & Physical ---
History of Present Illness - Date of Service Date of Service for History & Physical: 11/26/17 - History of Present Illness Admitting Diagnosis: Asthma exacerbation. URI History of Present Illness: Mr. London is a 42 y/o male with known mild persistent asthma who presents with increasing difficulty in breathing and wheezing over the pst several days. The patient has tried to use his albuterol rescue inhaler without relief. He denies cough, congestion, Travel Screening - Travel/Exposure Within Last 30 Days Have you traveled within the last 30 days?: No - Travel/Exposure Within Last Year Have you traveled outside the [place] in the last year?: No - Additonal Travel Details Have you been exposed to anyone with a communicable illness?: No - Travel Symptoms Symptom Screening: None Review of Systems Constitutional: Denies: Chills, Fever, Malaise, Night sweats Eyes: Denies: Eye discharge, Eye pain ENT: Reports: Congestion. Denies: Ear pain, Epistaxis Respiratory: Reports: Cough Cardiovascular: Denies: Chest pain, Dyspnea on exertion Endocrine: Denies: Fatigue, Heat or cold intolerance Gastrointestinal: Denies: Abdominal pain, Nausea, Vomiting Genitourinary: Denies: Incontinence, Retention Musculoskeletal: Denies: Arthralgia, Back pain Skin: Denies: Bruising, Change in color Neurological: Denies: Abnormal gait, Confusion, Headache, Tingling Psychiatric: Denies: Anxiety Hematological/Lymphatic: Denies: Anemia, Blood Clots Past Medical History - SOCIAL HISTORY Smoking Status: Former smoker Alcohol Use: None Drug Use: None - RESPIRATORY Hx Respiratory Disorders: Yes Hx Asthma: Yes Hx Bronchitis: Yes Hx COPD: No Hx Dyspnea: Yes Hx Pneumonia: Yes Hx Pulmonary Embolism: No Hx Sleep Apnea: No Hx Tuberculosis: No Hx of CPAP: No - CARDIOVASCULAR Hx Cardio Disorders: No Hx Abnormal EKG: No Hx Cardiac Cath: No Hx Chest Pain: No Hx CHF: No Hx Deep Vein Thrombosis: No Hx Edema: No Hx Heart Attack: No Hx Hypertension: No Hx Hypotension: No Hx Irregular Heartbeat: No Hx Palpitations: No Hx Pacemaker/Defib: No Hx Vascular Disease: No - NEURO Hx Neuro Disorders: No Hx Brain Tumor: No Hx CVA: No Hx Dementia: No Hx Dizziness: No Hx Headaches: No Hx Neuropathy: No Hx Parkinson's Disease: No Hx Seizures: No Hx Speech Problem: No Hx TIA: No - GI Hx GI Disorders: Yes Hx Abdominal Pain: No Hx Celiac Disease: No Hx Crohn's Disease: No Hx Diverticulitis: No Hx GI Bleed: No Hx Reflux: Yes Hx Hepatitis/Jaundice: Yes (Hep C) Hx Hiatal Hernia: Yes Hx Irritable Bowel: No Hx Liver Disease: Yes Hx Nausea/Vomiting: No Hx Obstructive Bowel: No Hx Pancreatitis: Yes Hx Rectal Bleeding: No Hx Ulcer: Yes Hx Wt Loss/Wt Gain: No Hx of Polyps: No - Hx Genitourinary Disorders: Yes Hx Bladder Problem: No Hx Dialysis: No Hx Kidney Stones: No Hx Prostate Problems: No Hx Renal Disease: No Hx UTI: No Comment:: one kidney-L; atypical epididymitis - ENDOCRINE Hx Endocrine Disorders: No Hx Diabetes: No Hx Thyroid Disease: No - MUSCULOSKELETAL Hx Musculoskeletal Disorders: No Hx Arthritis: Yes Hx Back Injury: Yes Hx Fibromyalgia: No Hx Gout: No Hx Musculoskeletal Disease: No Hx Osteoporosis: No - PSYCH Hx Psych Problems: Yes Hx Anxiety: Yes Hx Behavior Problems: No Hx Depression: Yes Hx Emotional Abuse: No Hx Sexual Abuse: No Hx Suicide Attempt: Yes (many years ago) Major Depressive Episode: Yes Feelings of Hopelessness: No - HEMATOLOGY/ONCOLOGY Hx Hematology/Oncology Disorders: No Hx Anemia: No Hx Blood Disorders: No Hx Bruising: No Hx Cancer: No Hx Clotting Problems: No Hx Sickle Cell Disease: No Hx Unexplained Bleeding: No Hx Blood Transfusions: No Hx Blood Transfusion Reaction: No Family Medical History Any Significant Family History?: No Family Hx Comment (NOT TO BE USED IN PLACE OF ITEMS BELOW): Sister - Mckeon's syndrome Hx Alcohol Use: Father, Mother Hx Anxiety: Brother/Sister Hx Cancer: Mother, Children *Cancer Comment: son with Leukemia Hx Depression: Brother/Sister Hx Diabetes: Father Hx Resp Disorders: Father Hx Stroke: Mother H&P Meds/Allergies - Allergies Allergies: Allergies Allergy/AdvReac Type Severity Reaction Status Date / Time atorvastatin calcium AdvReac Mild BODY ACHES Verified 11/25/17 17:14 [From Lipitor] sulfamethoxazole AdvReac Mild VOMITING Verified 11/25/17 17:14 [From Bactrim] trimethoprim [From Bactrim] AdvReac Mild VOMITING Verified 11/25/17 17:14 - Home Medications Home Medications Medication Instructions Recorded Confirmed Last Taken Nicotine [Nicotine Patch] 1 each TD DAILY 11/26/17 11/26/17 Unknown Previous Rx's Medication Instructions Recorded Doxycycline Hyclate [Doxycycline] 200 mg PO BID #18 cap 11/22/17 - Active Medications Active Medications: Current Medications Albuterol Sulfate () 2.5 mg INH RESP.Q4H PRN PRN Reason: DIFFICULTY IN BREATHING Albuterol/Ipratropium (Duoneb) 3 ml INH RESP.Q4H.[facility] Last Admin: 11/26/17 06:11 Dose: 3 ml Citalopram Hydrobromide (Celexa) 40 mg PO QHS [facility] Last Admin: 11/25/17 22:34 Dose: 40 mg Doxycycline Hyclate (Vibramycin) 200 mg PO BID [facility] Last Admin: 11/25/17 22:27 Dose: 200 mg Sodium Chloride () 1,000 mls @ 100 mls/hr IV .Q10H PRN PRN Reason: LARGE VOLUME IV Methylprednisolone Sodium Succinate (Solu-Medrol) 125 mg IVP DAILY [facility] Nicotine (Nicotine 14mg) patch TD ASDIR [facility] Non-Formulary Medication (Naproxen Sodium [Naproxen Sodium]) 550 mg PO BID [facility] Pantoprazole Sodium (Protonix) 40 mg PO QHS [facility] Last Admin: 11/25/17 22:27 Dose: 40 mg Propranolol HCl (Inderal) 20 mg PO BID [facility] Last Admin: 11/25/17 22:35 Dose: 20 mg Physical Exam - Vital Signs Vital Signs: Vital Signs - Last 24 Hrs Temp Pulse Pulse Resp BP Pulse Ox 11/26/17 06:11 102 H 18 97 11/26/17 04:50 98.0 F 71 20 132/72 95 11/25/17 22:44 86 20 94 L 11/25/17 20:50 98.2 F 74 22 132/76 95 - General General Appearance: Alert, Oriented x3, Cooperative, Mild distress Limitations: No limitations - Head Head exam: Atraumatic, Normocephalic, Normal inspection Head exam detail: negative: Abrasion, Contusion, Cedillo's sign, General tenderness, Hematoma, Laceration - Eye Eye exam: Normal appearance. negative: Conjunctival injection, Periorbital swelling, Periorbital tenderness, Scleral icterus - ENT Ear exam: negative: Auricular hematoma, Auricular trauma Nasal Exam: negative: Active bleeding, Discharge, Dried blood, Sinus tenderness Mouth exam: negative: Drooling, Laceration, Tongue elevation - Neck Neck exam: Normal inspection. negative: Meningismus, Tenderness - Respiratory Respiratory exam: Decreased breath sounds. negative: Respiratory distress, Rhonchi, Stridor, Wheezes - Cardiovascular Cardiovascular Exam: Regular rate, Normal rhythm, Normal heart sounds Peripheral Pulses: 2+: Radial (R), Radial (L), Dorsalis Pedis (R), Dorsalis Pedis (L) - GI/Abdominal GI/Abdominal exam: Soft. negative: Pulsatile mass, Rebound, Rigid, Tenderness - Rectal Rectal exam: Deferred - exam: Deferred - Extremities Extremities exam: Normal inspection. negative: Calf tenderness, Pedal edema, Tenderness - Back Back exam: Denies: CVA tenderness (R), CVA tenderness (L) - Neurological Neurological exam: Alert, Normal gait, Oriented X3 - Psychiatric Psychiatric exam: Normal affect, Normal mood - Skin Skin exam: negative: Abrasion Type of lesion: negative: abrasion Results - Labs Result Diagrams: 11/25/17 18:38 11/25/17 18:38 VTE H&P Assessment - Risk for VTE Risk for VTE: No Risk Level: Very Low Risk Assessment Date: 11/26/17 Risk Assessment Time: 10:43 VTE Orders Placed or Will Be Placed: No VTE Reason for No Prophylaxis: Not Indicated Plan - Detailed Diagnosis and Plan (1) Asthma exacerbation Current Visit: Yes Status: Acute Qualifiers: Asthma severity: mild Asthma persistence: persistent Qualified Code(s): J45.31 - Mild persistent asthma with (acute) exacerbation Base Code: J45.901 - UNSPECIFIED ASTHMA WITH (ACUTE) EXACERBATION Comment: - chest xray negative, no SIRS criteria met - titrate to maintian oxygen saturations > 92% - respiratory therapy w/ albuterol Q4H, duonebs, peak flow measure. - doxycycline 100mg BID, d/c solumderol, start Prednisone 60mg QD (2) Depression Current Visit: Yes Status: Acute Base Code: F32.9 - MAJOR DEPRESSIVE DISORDER, SINGLE EPISODE, UNSPECIFIED Comment: - stable on Citalopram (3) Tobacco dependence Current Visit: Yes Status: Acute Base Code: F17.200 - NICOTINE DEPENDENCE, UNSPECIFIED, UNCOMPLICATED Comment: - patient is an active smoker ( packs/ daily) - cessation counseling given. (4) Full code status Current Visit: Yes Status: Acute Base Code: Z78.9 - OTHER SPECIFIED HEALTH STATUS Comment: FULL CODE - Disposition D/C home today with PO medication
[2017-11-26] MEDS ORDERED: PREDNISONE 20 MG TAB PO SCH (08:00)
[2017-11-26] MEDS: PROPRANOLOL HCL 10 MG TABLET PO SCH (09:46)
[2017-11-26] MEDS ORDERED: NICOTINE 21 MG/24 HOUR PATCH TD SCH (10:00)
[2017-11-26] MEDS ORDERED: METHYLPREDNISOLONE PF 125MG/VIAL IVP SCH (10:00)
[2017-11-26] MEDS ORDERED: PANTOPRAZOLE SODIUM 40 MG TABLET PO SCH (10:00)
[2017-11-26] MEDS ORDERED: NAPROXEN 250 MG TABLET PO SCH (10:00)
[2017-11-26] MEDS ORDERED: DOXYCYCLINE HYCLATE 100 MG CAPSULE PO SCH (10:00)
[2017-11-26] MEDS ORDERED: BREO (FLUTICASONE/VILANTEROL) 100MCG/25MCG INHALER INH SCH (11:30)
--- NOTE | 2017-11-26 12:34 | Discharge Summary ---
Providers Discharge Summary Date: 11/26/17 Date of admission: 11/25/17 20:13 Attending physician: SANJANA CUMMINS Primary care physician: SANJANA CUMMINS Physical Exam - Vital Signs Vital Signs: Vital Signs - Last 24 Hrs Temp Pulse Pulse Resp BP Pulse Ox 11/26/17 11:35 97 H 14 94 L 11/26/17 11:17 98.5 F 79 18 131/68 95 11/26/17 09:56 76 15 93 L 11/26/17 09:00 71 15 11/26/17 06:11 102 H 18 97 11/26/17 04:50 98.0 F 71 20 132/72 95 11/25/17 22:44 86 20 94 L 11/25/17 20:50 98.2 F 74 22 132/76 95 - General General Appearance: Alert, Oriented x3, Cooperative, Mild distress Limitations: No limitations - Head Head exam: Atraumatic, Normocephalic, Normal inspection Head exam detail: negative: Abrasion, Contusion, Cedillo's sign, General tenderness, Hematoma, Laceration - Eye Eye exam: Normal appearance. negative: Conjunctival injection, Periorbital swelling, Periorbital tenderness, Scleral icterus - ENT Ear exam: negative: Auricular hematoma, Auricular trauma Nasal Exam: negative: Active bleeding, Discharge, Dried blood, Sinus tenderness Mouth exam: negative: Drooling, Laceration, Tongue elevation - Neck Neck exam: Normal inspection. negative: Meningismus, Tenderness - Respiratory Respiratory exam: Decreased breath sounds. negative: Respiratory distress, Rhonchi, Stridor, Wheezes - Cardiovascular Cardiovascular Exam: Regular rate, Normal rhythm, Normal heart sounds Peripheral Pulses: 2+: Radial (R), Radial (L), Dorsalis Pedis (R), Dorsalis Pedis (L) - GI/Abdominal GI/Abdominal exam: Soft. negative: Pulsatile mass, Rebound, Rigid, Tenderness - Rectal Rectal exam: Deferred - exam: Deferred - Extremities Extremities exam: Normal inspection. negative: Calf tenderness, Pedal edema, Tenderness - Back Back exam: Denies: CVA tenderness (R), CVA tenderness (L) - Neurological Neurological exam: Alert, Normal gait, Oriented X3 - Psychiatric Psychiatric exam: Normal affect, Normal mood - Skin Skin exam: negative: Abrasion Type of lesion: negative: abrasion Hospitalization - Hospitalization Admission Diagnosis: Asthma exacerbation. URI - Problem List/Discharge Diagnosis (1) Asthma exacerbation Current Visit: Yes Status: Acute Discharge Diagnosis: Asthma severity: mild Asthma persistence: persistent Qualified Code(s): J45.31 - Mild persistent asthma with (acute) exacerbation Base Code: J45.901 - UNSPECIFIED ASTHMA WITH (ACUTE) EXACERBATION Comment: - chest xray negative, no SIRS criteria met - titrate to maintian oxygen saturations > 92% - respiratory therapy w/ albuterol Q4H, duonebs, peak flow measure. - doxycycline 100mg BID, d/c solumderol, start Prednisone 60mg QD (2) Depression Current Visit: Yes Status: Acute Base Code: F32.9 - MAJOR DEPRESSIVE DISORDER, SINGLE EPISODE, UNSPECIFIED Comment: - stable on Citalopram (3) Tobacco dependence Current Visit: Yes Status: Acute Base Code: F17.200 - NICOTINE DEPENDENCE, UNSPECIFIED, UNCOMPLICATED Comment: - patient is an active smoker ( packs/ daily) - cessation counseling given. (4) Full code status Current Visit: Yes Status: Acute Base Code: Z78.9 - OTHER SPECIFIED HEALTH STATUS Comment: FULL CODE - Disposition D/C home today with PO medication - Hospitalization Course Hospital Course: Mr. London is a 42 y/o male with known mild persistent asthma who presents with increasing difficulty in breathing and wheezing over the past several days. The patient has tried to use his albuterol rescue inhaler without relief. He denies cough, congestion, headaches or nasal discharge. The patient reports that he has stopped smoking for 1 month but still using electronic cigarettes. he has intermittent symptoms mostly exacerbated by weather changes and environmental irritants. he was in the ED twicw on the weekend and also presented to [facility] with the above mentioned complaints. On arrival to the ED the patient was started on IV steroids, respiratory therapy and fluids. On examination at bedside this morning the patient is awake, alert, without labored breathing and no supplemental oxygen requirements. He will be discharged on oral antibiotics , oral steroids with tapering dose and Advair. Condition at Discharge: (2) Stable Discharge Medications - Discharge Medications Prescriptions: Doxycycline Hyclate [Vibramycin] 100 mg PO BID 3 Days #6 capsule Fluticasone/Vilanterol 100/25 [Breo Ellipta 100-25 Mcg INH] 1 puff INH DAILY #1 inhaler Prednisone [Prednisone 20Mg] 60 mg PO DAILYWM 4 Days #8 tab Home Medications: Ambulatory Orders Multivitamin [Multi-Vitamin Daily] 1 each PO DAILY 11/01/14 [Last Taken 11/25/17 ] Milk Thistle 150 mg PO TID 06/04/15 [Last Taken 11/25/17] [place] Red 1 tab DAILY 08/21/17 [Last Taken 11/24/17] Omeprazole 20 mg PO BID 11/21/17 [Last Taken 11/25/17] Doxycycline Hyclate [Vibramycin] 100 mg PO BID 3 Days #6 capsule 11/26/17 [Last Taken Unknown] Fluticasone/Vilanterol 100/25 [Breo Ellipta 100-25 Mcg INH] 1 puff INH DAILY #1 inhaler 11/26/17 [Last Taken Unknown] Nicotine [Nicotine Patch] 1 each TD DAILY 11/26/17 [Last Taken Unknown] Prednisone [Prednisone 20Mg] 60 mg PO DAILYWM 4 Days #8 tab 11/26/17 [Last Taken Unknown] Discharge Plan - Discharge Instructions Activity at Discharge: Increase Activity as Tolerated Diet at Discharge: Regular Diet Quality Measures - Quality Measures Quality Measures: Documentation of Current Medications in Medical Record, Screening for High Blood Pressure and F/U Documented - Current Medications Quality Measure: Measure #130: Documentation of Current Medications Documentation of Current Medications: <Current Medications Documented/Reviewed> [G8427] - Blood Pressure Screening Quality Measure: Screening for High Blood Pressure and Follow-Up Documented Does Patient Have Any of the Following: No Blood Pressure Classification: Normal BP Reading Systolic Measurement: 117 Diastolic Measurement: 75 Screening for High Blood Pressure: < Normal BP, F/U Not Required > [G8783] - Elder Abuse Suspicion Index EASI Reference Information: Enrique BOOKER, Tanisha C, Shabbir D, Vanessa Matos.Development and validation of a tool to assist physicians identification of elder abuse: The Elder Abuse Suspicion Index (EASI ). Journal of Elder Abuse and Neglect, 2008; 20 (3): 276-300.
[2017-11-26] MEDS ORDERED: CITALOPRAM 20 MG TABLET PO SCH (22:00)
== END 2017-11-26 13:25 | disposition home or self-care (01) ==
LOC: ER 17:04 → MEDSURG 20:13
PROVIDERS: ADMIT Internal Medicine; ATTEND Internal Medicine
DX: J45.901 Unspecified asthma with (acute) exacerbation (principal); F32.9 Major depressive disorder, single episode, unspecified; F17.200 Nicotine dependence, unspecified, uncomplicated
CPT/HCPCS: 71046; 80053; 85025; 93005; 93010; 94640; 96374; 99220; 99236; 99285; J2930; J7512

== ENCOUNTER 2018-03-07 07:15 | Emergency (ER) | payer MEDICAID ==
[2018-03-07] MEDS ORDERED: IPRATROPIUM/ALBUTEROL (0.5MG/3MG) NEB INH ONE (07:24)
[2018-03-07] MEDS ORDERED: METHYLPREDNISOLONE PF 125MG/VIAL IVP ONE (07:24)
--- NOTE | 2018-03-07 07:26 | Emergency Department Record ---
History of Present Illness - General Chief Complaint: Asthma Stated Complaint: ROSA Time Seen by Provider: 03/07/18 07:20 Source: Patient Mode of Arrival: Ambulatory Limitations: No limitations - History of Present Illness Initial Comments: 42 yo male presents with shortness of breath. He states he has a history of asthma. He is a smoker as well. He ran out of Albuterol recently. He does still use Advair. His other family members have been ill with URI symptoms. NO fevers or chills. No chest pain. No nausea, vomiting or diarrhea. No rash. No edema. His PCP is Dr Beal of the [facility]. MD Complaint: "Asthma attack", Shortness of breath -: Days(s) (onset yesterday) Asthma History: Adult onset Severity: Moderate Context: Recent URI, Smoke exposure Associated Symptoms: Dry cough - Related Data Current Asthma Therapy: Other (Advair) Home Medications Medication Instructions Recorded Confirmed Last Taken Albuterol Sulfate [Proair Hfa] 2 puff INH ASDIR 03/07/18 03/07/18 Unknown Fluticasone/Salmeterol [Advair Hfa 2 puff INH DAILY 03/07/18 03/07/18 03/06/18 45-21 Mcg Inhaler] Previous Rx's Medication Instructions Recorded Albuterol Sulfate [Proair Hfa] 1 - 2 puff IH .EVERY 4-6 HOURS PRN 03/07/18 #1 inhaler Fluticasone/Salmeterol [Advair Hfa 8 gm IH BID #1 hfa.aer.ad 03/07/18 45-21 Mcg Inhaler] Prednisone [Prednisone 20Mg] 20 mg PO BID #10 tab 03/07/18 Allergies Allergy/AdvReac Type Severity Reaction Status Date / Time atorvastatin calcium AdvReac Mild BODY ACHES Verified 03/07/18 07:16 [From Lipitor] sulfamethoxazole AdvReac Mild VOMITING Verified 03/07/18 07:16 [From Bactrim] trimethoprim [From Bactrim] AdvReac Mild VOMITING Verified 03/07/18 07:16 Review of Systems Constitutional: Denies: Chills, Fever, Malaise, Weakness Eyes: Denies: Eye discharge ENT: Reports: Congestion, Throat pain Respiratory: Reports: Cough, Wheezes. Denies: Hemoptysis Cardiovascular: Denies: Chest pain, Palpitations, Syncope Endocrine: Denies: Fatigue Gastrointestinal: Denies: Abdominal pain, Diarrhea, Nausea, Vomiting Genitourinary: Denies: Dysuria, Frequency, Hematuria, Incontinence Musculoskeletal: Denies: Arthralgia, Back pain, Joint swelling, Myalgia Skin: Denies: Bruising, Change in color, Rash Neurological: Denies: Headache, Numbness, Weakness Psychiatric: Denies: Anxiety Hematological/Lymphatic: Denies: Blood Clots, Easy bleeding, Easy bruising, Swollen glands Past Medical History - SOCIAL HISTORY Smoking Status: Former smoker Drug Use: None - RESPIRATORY Hx Respiratory Disorders: Yes Hx Asthma: Yes Hx Bronchitis: Yes Hx COPD: No Hx Dyspnea: Yes Hx Pneumonia: Yes Hx Pulmonary Embolism: No Hx Sleep Apnea: No Hx Tuberculosis: No Hx of CPAP: No - CARDIOVASCULAR Hx Cardio Disorders: No Hx Abnormal EKG: No Hx Cardiac Cath: No Hx Chest Pain: No Hx CHF: No Hx Deep Vein Thrombosis: No Hx Edema: No Hx Heart Attack: No Hx Hypertension: No Hx Hypotension: No Hx Irregular Heartbeat: No Hx Palpitations: No Hx Pacemaker/Defib: No Hx Vascular Disease: No - NEURO Hx Neuro Disorders: No Hx Brain Tumor: No Hx CVA: No Hx Dementia: No Hx Dizziness: No Hx Headaches: No Hx Neuropathy: No Hx Parkinson's Disease: No Hx Seizures: No Hx Speech Problem: No Hx TIA: No - GI Hx GI Disorders: Yes Hx Abdominal Pain: No Hx Celiac Disease: No Hx Crohn's Disease: No Hx Diverticulitis: No Hx GI Bleed: No Hx Reflux: Yes Hx Hepatitis/Jaundice: Yes (Hep C) Hx Hiatal Hernia: Yes Hx Irritable Bowel: No Hx Liver Disease: Yes Hx Nausea/Vomiting: No Hx Obstructive Bowel: No Hx Pancreatitis: Yes Hx Rectal Bleeding: No Hx Ulcer: Yes Hx Wt Loss/Wt Gain: No Hx of Polyps: No - Hx Genitourinary Disorders: Yes Hx Bladder Problem: No Hx Dialysis: No Hx Kidney Stones: No Hx Prostate Problems: No Hx Renal Disease: No Hx UTI: No Comment:: one kidney-L; atypical epididymitis - ENDOCRINE Hx Endocrine Disorders: No Hx Diabetes: No Hx Thyroid Disease: No - MUSCULOSKELETAL Hx Musculoskeletal Disorders: No Hx Arthritis: Yes Hx Back Injury: Yes Hx Fibromyalgia: No Hx Gout: No Hx Musculoskeletal Disease: No Hx Osteoporosis: No - PSYCH Hx Psych Problems: Yes Hx Anxiety: Yes Hx Behavior Problems: No Hx Depression: Yes Hx Emotional Abuse: No Hx Sexual Abuse: No Hx Suicide Attempt: Yes (many years ago) - HEMATOLOGY/ONCOLOGY Hx Hematology/Oncology Disorders: No Hx Anemia: No Hx Blood Disorders: No Hx Bruising: No Hx Cancer: No Hx Clotting Problems: No Hx Sickle Cell Disease: No Hx Unexplained Bleeding: No Hx Blood Transfusions: No Hx Blood Transfusion Reaction: No Family Medical History Family Hx Comment (NOT TO BE USED IN PLACE OF ITEMS BELOW): Sister - Mckeon's syndrome Hx Alcohol Use: Father, Mother Hx Anxiety: Brother/Sister Hx Cancer: Mother, Children *Cancer Comment: son with Leukemia Hx Depression: Brother/Sister Hx Diabetes: Father Hx Resp Disorders: Father Hx Stroke: Mother Physical Exam - General General Appearance: Alert, Oriented x3, Cooperative, No acute distress Limitations: No limitations - Head Head exam: Normal inspection - Eye Eye exam: Normal appearance, PERRL. negative: Conjunctival injection, Scleral icterus - ENT ENT exam: Normal exam, Mucous membranes moist Ear exam: Normal external inspection Nasal Exam: Normal inspection Mouth exam: Normal external inspection Teeth exam: Normal inspection Throat exam: Normal inspection - Neck Neck exam: Normal inspection, Full ROM. negative: Tenderness - Respiratory Respiratory exam: Decreased breath sounds, Prolonged expiratory, Wheezes. negative: Accessory muscle use, Chest wall tenderness, Rales, Respiratory distress, Rhonchi, Stridor - Cardiovascular Cardiovascular Exam: Regular rate, Normal rhythm, Normal heart sounds Peripheral Pulses: 2+: Radial (R), Radial (L) - GI/Abdominal GI/Abdominal exam: Soft. negative: Guarding, Rebound, Rigid, Tenderness - Rectal Rectal exam: Deferred - exam: Deferred - Extremities Extremities exam: Normal inspection, Full ROM, Normal capillary refill. negative: Pedal edema, Tenderness - Back Back exam: Reports: Normal inspection, Full ROM. Denies: Muscle spasm, Rash noted, Tenderness - Neurological Neurological exam: Alert, Normal gait, Oriented X3 - Psychiatric Psychiatric exam: Normal affect, Normal mood - Skin Skin exam: Dry, Intact, Normal color, Warm Course - Reevaluation(s) Reevaluation #1: 03/07/18 08:09 The labs were reviewed No acute changes on the CBC or BMP 03/07/18 08:26 The prelim CXR was reviewed. No acute process The recheck lung examination demonstrated improved air exchange and subjective improvement. 03/07/18 09:29 The patient continues to do well He is 95% He will have an ambulation trial and likely DC home if no dyspnea or desaturation. 03/07/18 09:48 The patient remained in the mid 90's up to 98% on ambulation. He is not dyspneic. He is very comfortable with DC. he will restart his Albuterol as instructed. We discussed reasons to return to the ED as well as close follow up with his PCP. Medical Decision Making - Lab Data Result diagrams: 03/07/18 07:20 03/07/18 07:20 Disposition Disposition: Discharge Clinical Impression: Asthma exacerbation Qualifiers: Asthma severity: mild Asthma persistence: intermittent Qualified Code(s): J45.21 - Mild intermittent asthma with (acute) exacerbation URI (upper respiratory infection) Qualifiers: URI type: unspecified viral URI Qualified Code(s): J06.9 - Acute upper respiratory infection, unspecified Disposition: Home, Self-Care Condition: (1) Good Instructions: Asthma (ED) Additional Instructions: Return to the ER if you have any shortness of breath, pain, or fever Call your doctor first of the week for a recheck of this ER visit Fill your Albuterol and Prednisone today Prescriptions: Albuterol Sulfate [Proair Hfa] 1 - 2 puff IH .EVERY 4-6 HOURS PRN #1 inhaler PRN Reason: Difficulty In Breathing Fluticasone/Salmeterol [Advair Hfa 45-21 Mcg Inhaler] 8 gm IH BID #1 hfa.aer.ad Prednisone [Prednisone 20Mg] 20 mg PO BID #10 tab Forms: Patient Portal Access Time of Disposition: 09:34 Quality - Quality Measures Quality Measures: N/A - Blood Pressure Screening Does Patient Have Any of the Following: No Blood Pressure Classification: Normal BP Reading Systolic Measurement: 116 Diastolic Measurement: 71 Screening for High Blood Pressure: < Normal BP, F/U Not Required > [G8783] Pre-Hypertensive Follow-up Interventions: Referral to alternative/primary care provider.
[2018-03-07 07:35] LABS: BASO % 0.8 % (0-6); EOS % 2.7 % (0-6); GRAN % 59.5 % (47-80); HEMATOCRIT 43.5 % (42.0-52.0); HEMOGLOBIN 14.9 gm/dl (14.0-18.0); LYMPH % 26.1 % (16-45); MEAN CELL VOLUME 87.2 fl (81-97); MEAN CORPUSCULAR HEMOGLOBIN 29.9 pg (27-33); MEAN CORPUSCULAR HGB CONC 34.3 g/dl (32-36); MEAN PLATELET VOLUME 9.8 fl (7.4-10.4); MONO % 10.9 % (0-9); PLATELET COUNT 248 K/uL (130-400); RED BLOOD COUNT 4.99 M/uL (4.40-5.70); RED CELL DISTRIBUTION WIDTH 13.4 % (11.5-14.5); WHITE BLOOD COUNT W/O DIFF 4.9 K/uL (4.2-12.2)
[2018-03-07] MEDS ORDERED: ALBUTEROL SULFATE (0.083%) 2.5 MG/3 ML NEB INH SCH (07:45)
[2018-03-07 07:46] LABS: BLOOD UREA NITROGEN 20 mg/dL (6-20); EST GLOMERULAR FILTRATION RATE > 60 mL/min
[2018-03-07 07:49] LABS: GLUCOSE,RANDOM 123 mg/dL (74-109)
--- NOTE | 2018-03-08 12:52 | RADIOLOGY REPORT ---
EXAM: CHEST 2 VIEWS HISTORY: DIFFICULTY IN BREATHING. TECHNIQUE: Frontal and lateral views of the chest were performed. COMPARISON: 11/25/2017. FINDINGS: Heart size is normal. There is chronic underlying interstitial lung disease. Stable calcified nodular density projects over the left lower lobe. No infiltrate or pleural effusion. IMPRESSION: 1. CHRONIC UNDERLYING INTERSTITIAL LUNG DISEASE. NO SUPERIMPOSED INFILTRATE OR PLEURAL EFFUSION. NO CHANGE WHEN COMPARED TO 11/25/2017. 2. CALCIFIED GRANULOMA PROJECTS OVER THE LEFT LOWER LOBE. JOB NUMBER: [id number] [facility]
== END 2018-03-07 10:00 | disposition home or self-care (01) ==
LOC: ER 07:15
DX: J45.21 Mild intermittent asthma with (acute) exacerbation (principal); J06.9 Acute upper respiratory infection, unspecified; F17.290 Nicotine dependence, other tobacco product, uncomplicated
CPT/HCPCS: 71046; 80048; 85025; 94640; 96374; 99284; J2930

== ENCOUNTER 2018-03-08 13:59 | Inpatient (IN) | payer MEDICAID ==
[2018-03-08] MEDS ORDERED: IPRATROPIUM/ALBUTEROL (0.5MG/3MG) NEB INH ONE (14:25)
--- NOTE | 2018-03-08 14:31 | Emergency Department Record ---
History of Present Illness - General Chief Complaint: Asthma Stated Complaint: ROSA Time Seen by Provider: 03/08/18 14:28 Source: Patient Mode of Arrival: Ambulatory Limitations: No limitations - History of Present Illness Initial Comments: 42 yo male presents again to the ED with cough, shortness of breath and wheezing. He has a history of COPD asthma. He was seen in the ED yesterday and felt much improved. No fever. No chest pain. He states since leaving the ED his sputum is slightly yellow now and his wheezing is more persistent especially with walking. No NVD. He is a smoker. Dr Beal is his doctor. MD Complaint: Shortness of breath, Wheezing Asthma History: Childhood onset Severity: Moderate Context: Recent URI Associated Symptoms: Productive cough Treatments Prior to Arrival: Inhaled steroid - Related Data Current Asthma Therapy: Inhaled steroid Previous Rx's Medication Instructions Recorded Fluticasone/Salmeterol [Advair Hfa 8 gm IH BID #1 hfa.aer.ad 03/07/18 45-21 Mcg Inhaler] Prednisone [Prednisone 20Mg] 20 mg PO BID #10 tab 03/07/18 Allergies Allergy/AdvReac Type Severity Reaction Status Date / Time atorvastatin calcium AdvReac Mild BODY ACHES Verified 03/08/18 14:19 [From Lipitor] sulfamethoxazole AdvReac Mild VOMITING Verified 03/08/18 14:19 [From Bactrim] trimethoprim [From Bactrim] AdvReac Mild VOMITING Verified 03/08/18 14:19 Travel Screening - Travel/Exposure Within Last 30 Days Have you traveled within the last 30 days?: No - Travel/Exposure Within Last Year Have you traveled outside the [place] in the last year?: No - Additonal Travel Details Have you been exposed to anyone with a communicable illness?: No - Travel Symptoms Symptom Screening: None Review of Systems Constitutional: Denies: Chills, Fever, Malaise, Weakness Eyes: Denies: Eye discharge ENT: Reports: Congestion. Denies: Throat pain Respiratory: Reports: Cough, Dyspnea, Wheezes. Denies: Hemoptysis, Stridor Cardiovascular: Denies: Chest pain, Palpitations, Syncope Endocrine: Denies: Fatigue Gastrointestinal: Denies: Abdominal pain, Diarrhea, Nausea, Vomiting Genitourinary: Denies: Dysuria, Frequency, Hematuria Musculoskeletal: Denies: Arthralgia, Back pain, Joint swelling, Myalgia Skin: Denies: Bruising, Change in color, Rash Neurological: Denies: Confusion, Headache, Numbness, Weakness Psychiatric: Denies: Anxiety Hematological/Lymphatic: Denies: Blood Clots, Easy bleeding, Easy bruising, Swollen glands Past Medical History - SOCIAL HISTORY Smoking Status: Former smoker Alcohol Use: None Drug Use: None - RESPIRATORY Hx Respiratory Disorders: Yes Hx Asthma: Yes Hx Bronchitis: Yes Hx COPD: No Hx Dyspnea: Yes Hx Pneumonia: Yes Hx Pulmonary Embolism: No Hx Sleep Apnea: No Hx Tuberculosis: No Hx of CPAP: No - CARDIOVASCULAR Hx Cardio Disorders: No Hx Abnormal EKG: No Hx Cardiac Cath: No Hx Chest Pain: No Hx CHF: No Hx Deep Vein Thrombosis: No Hx Edema: No Hx Heart Attack: No Hx Hypertension: No Hx Hypotension: No Hx Irregular Heartbeat: No Hx Palpitations: No Hx Pacemaker/Defib: No Hx Vascular Disease: No - NEURO Hx Neuro Disorders: No Hx Brain Tumor: No Hx CVA: No Hx Dementia: No Hx Dizziness: No Hx Headaches: No Hx Neuropathy: No Hx Parkinson's Disease: No Hx Seizures: No Hx Speech Problem: No Hx TIA: No - GI Hx GI Disorders: Yes Hx Abdominal Pain: No Hx Celiac Disease: No Hx Crohn's Disease: No Hx Diverticulitis: No Hx GI Bleed: No Hx Reflux: Yes Hx Hepatitis/Jaundice: Yes (Hep C) Hx Hiatal Hernia: Yes Hx Irritable Bowel: No Hx Liver Disease: Yes Hx Nausea/Vomiting: No Hx Obstructive Bowel: No Hx Pancreatitis: Yes Hx Rectal Bleeding: No Hx Ulcer: Yes Hx Wt Loss/Wt Gain: No Hx of Polyps: No - Hx Genitourinary Disorders: Yes Hx Bladder Problem: No Hx Dialysis: No Hx Kidney Stones: No Hx Prostate Problems: No Hx Renal Disease: No Hx UTI: No Comment:: one kidney-L; atypical epididymitis - ENDOCRINE Hx Endocrine Disorders: No Hx Diabetes: No Hx Thyroid Disease: No - MUSCULOSKELETAL Hx Musculoskeletal Disorders: No Hx Arthritis: Yes Hx Back Injury: Yes Hx Fibromyalgia: No Hx Gout: No Hx Musculoskeletal Disease: No Hx Osteoporosis: No - PSYCH Hx Psych Problems: Yes Hx Anxiety: Yes Hx Behavior Problems: No Hx Depression: Yes Hx Emotional Abuse: No Hx Sexual Abuse: No Hx Suicide Attempt: Yes (many years ago) - HEMATOLOGY/ONCOLOGY Hx Hematology/Oncology Disorders: No Hx Anemia: No Hx Blood Disorders: No Hx Bruising: No Hx Cancer: No Hx Clotting Problems: No Hx Sickle Cell Disease: No Hx Unexplained Bleeding: No Hx Blood Transfusions: No Hx Blood Transfusion Reaction: No Family Medical History Any Significant Family History?: Yes Family Hx Comment (NOT TO BE USED IN PLACE OF ITEMS BELOW): Sister - Mckeon's syndrome Hx Alcohol Use: Father, Mother Hx Anxiety: Brother/Sister Hx Cancer: Mother, Children *Cancer Comment: son with Leukemia Hx Depression: Brother/Sister Hx Diabetes: Father Hx Resp Disorders: Father Hx Stroke: Mother Physical Exam - General General Appearance: Alert, Oriented x3, Cooperative, No acute distress Limitations: No limitations - Head Head exam: Atraumatic, Normal inspection - Eye Eye exam: Normal appearance, PERRL. negative: Conjunctival injection, Scleral icterus - ENT ENT exam: Normal exam, Mucous membranes moist Ear exam: Normal external inspection Nasal Exam: Normal inspection Mouth exam: Normal external inspection Teeth exam: Normal inspection Throat exam: Normal inspection. negative: Tonsillar erythema, Tonsillomegaly, Tonsillar exudate, R peritonsillar mass, L peritonsillar mass - Neck Neck exam: Normal inspection, Full ROM. negative: Tenderness - Respiratory Respiratory exam: Decreased breath sounds, Prolonged expiratory, Wheezes. negative: Normal lung sounds bilaterally, Accessory muscle use, Respiratory distress, Rhonchi - Cardiovascular Cardiovascular Exam: Regular rate, Normal rhythm, Normal heart sounds Peripheral Pulses: 2+: Radial (R), Radial (L) - GI/Abdominal GI/Abdominal exam: Soft. negative: Hypoactive bowel sounds, Tenderness - Rectal Rectal exam: Deferred - exam: Deferred - Extremities Extremities exam: Normal inspection, Full ROM, Normal capillary refill. negative: Pedal edema, Tenderness - Back Back exam: Reports: Normal inspection, Full ROM. Denies: CVA tenderness (R), CVA tenderness (L), Muscle spasm, Rash noted, Tenderness - Neurological Neurological exam: Alert, Normal gait, Oriented X3 - Psychiatric Psychiatric exam: Normal affect, Normal mood - Skin Skin exam: Dry, Intact, Normal color, Warm Course Vital Signs 03/08/18 14:22 Temperature 97.9 F Pulse Rate 74 Respiratory 22 Rate Blood Pressure 121/74 Pulse Ox 94 L - Reevaluation(s) Reevaluation #1: The patient was given a Duoneb. He still has some persistent wheezing. Recommend OBV, 2 LNC, Zithromax His PCP is Dr Beal. Influenza Swab ordered as well. 03/08/18 14:55 03/08/18 14:57 CXR yesterday demonstrated chronic interstitial lung disease. No infiltrate. 03/08/18 15:32 No acute changes on the CBC,BMP, The influenza is negative 03/08/18 15:34 94-95% on 2 LNC. Still expiratory wheeze I recommend OBV for COPD treatment Medical Decision Making - Lab Data Result diagrams: 03/08/18 14:40 03/08/18 14:40 Disposition Disposition: Admit Clinical Impression: Asthma exacerbation, Tobacco dependence, URI (upper respiratory infection) Disposition: Still a Patient at [facility] Decision to Admit: Admit from ER Decision to Admit Date: 03/08/18 Decision to Admit Time: 14:56 Condition: (2) Stable Time of Disposition: 14:56 Quality - Quality Measures Quality Measures: N/A - Blood Pressure Screening Does Patient Have Any of the Following: Active Dx of HTN Blood Pressure Classification: Pre-Hypertensive BP Reading Systolic Measurement: 127 Diastolic Measurement: 88 Screening for High Blood Pressure: Patient Exclusion, Hx of HTN [[id number]] Pre-Hypertensive Follow-up Interventions: Referral to alternative/primary care provider.
[2018-03-08] MEDS ORDERED: AZITHROMYCIN 500 MG TABLET PO ONE (14:53)
[2018-03-08] MEDS ORDERED: METHYLPREDNISOLONE PF 125MG/VIAL IVP ONE (14:53)
[2018-03-08 15:04] LABS: BASO % 0.2 % (0-6); EOS % 0.1 % (0-6); GRAN % 79.4 % (47-80); HEMATOCRIT 40.8 % (42.0-52.0); LYMPH % 12.4 % (16-45); MEAN CELL VOLUME 87.2 fl (81-97); MEAN CORPUSCULAR HEMOGLOBIN 29.9 pg (27-33); MEAN CORPUSCULAR HGB CONC 34.3 g/dl (32-36); MEAN PLATELET VOLUME 10.1 fl (7.4-10.4); MONO % 7.9 % (0-9); PLATELET COUNT 243 K/uL (130-400); RED BLOOD COUNT 4.68 M/uL (4.40-5.70); RED CELL DISTRIBUTION WIDTH 13.3 % (11.5-14.5); WHITE BLOOD COUNT W/O DIFF 8.4 K/uL (4.2-12.2)
[2018-03-08 15:15] LABS: INFLUENZA A NEGATIVE (NEGATIVE); INFLUENZA B NEGATIVE (NEGATIVE)
[2018-03-08 15:16] LABS: BLOOD UREA NITROGEN 22 mg/dL (6-20); CREATININE 0.9 mg/dL (0.7-1.2); EST GLOMERULAR FILTRATION RATE > 60 mL/min
[2018-03-08 15:19] LABS: GLUCOSE,RANDOM 197 mg/dL (74-109)
[2018-03-08] MEDS ORDERED: NICOTINE 21 MG/24 HOUR PATCH TD SCH (16:14)
[2018-03-08] MEDS ORDERED: CEFTRIAXONE SODIUM 1 GM in 0.9 % SODIUM CHLORIDE 100ML 100 ML IVPB SCH (16:14)
[2018-03-08] MEDS ORDERED: CITALOPRAM 20 MG TABLET PO SCH (16:30)
[2018-03-08] MEDS: METHYLPREDNISOLONE PF 125MG/VIAL IVP SCH (16:39)
[2018-03-08] MEDS: PROPRANOLOL HCL 10 MG TABLET PO SCH ×2 (17:34→21:25)
[2018-03-08] MEDS: IPRATROPIUM/ALBUTEROL (0.5MG/3MG) NEB INH SCH ×2 (17:39→22:43)
[2018-03-08] MEDS: ALBUTEROL SULFATE (0.083%) 2.5 MG/3 ML NEB INH PRN (20:35)
[2018-03-08] MEDS: CITALOPRAM 20 MG TABLET PO SCH (21:25)
[2018-03-08] MEDS: DIPHENHYDRAMINE HCL 25 MG CAPSULE PO PRN (21:25)
[2018-03-08] MEDS: NAPROXEN 250 MG TABLET PO PRN (22:02)
[2018-03-09] MEDS: METHYLPREDNISOLONE PF 125MG/VIAL IVP SCH ×2 (00:33→10:36)
[2018-03-09] MEDS: ACETAMINOPHEN 500 MG TABLET PO PRN ×2 (00:38→21:53)
[2018-03-09] MEDS: IPRATROPIUM/ALBUTEROL (0.5MG/3MG) NEB INH SCH ×6 (06:05→21:51)
[2018-03-09] MEDS ORDERED: PANTOPRAZOLE SODIUM 40 MG TABLET PO SCH (07:00)
--- NOTE | 2018-03-09 08:30 | History & Physical ---
History of Present Illness - Date of Service Date of Service for History & Physical: 03/09/18 - History of Present Illness Admitting Diagnosis: COPD exacerbation History of Present Illness: 42 yo male presents again to the ED with cough, shortness of breath and wheezing. He has a history of COPD asthma, GERD, hepatitis C, hiatal hernia, arthritis, anxiety and depression. He is a current smoker. He was seen in the [facility] ED Friday and was discharged home due to feeling better. No fever. No chest pain. He states since leaving the ED his sputum is slightly yellow now and his wheezing is more persistent especially with walking so he returned to the ED on Friday Patient had CXR on 03/07/18 showing chronic interstitial changes but no acute process. CXR was not repeated on Friday. His room air O2 sats were in the low 90 's. WBC count was 8.4. CMP was unremarkable. Patient received solumedrol 60mg IV in the ED along with duoneb breathing treatments. He was started on rocephin and azithromycin and admitted for COPD/asthma exacerbation 03/09/18- Patient states he is somewhat improved from yesterday. He says his breathing is not as tight as it was yesterday when he came in. He is still having wheezing and some cough, but improved from yesterday. Denies shortness of breath at rest. Says he does get a little winded with ambulation. Has been satting 95% on room air at rest. Patient states he has started smoking again due to stress but would like to quit. has patches at home. has tried chantix 2x without success. mentions it is more to do stress than nicotine cravings. Has never met with [facility] counseling in the clinic but would be interested. Patient had PFT;s on 01/06 showing moderate obstructive pattern with significant bronchodilator response. He had been started on advair as outpatient in November but can't afford the prescription so was getting samples. He was given 100/ 50mcg dose. He isn't sure if he has had any improvement with the advair. he does admit to having seasonal allergies with lots of post nasal drainage and sinus congestion. pcp: Dr. Beal Travel Screening - Travel/Exposure Within Last 30 Days Have you traveled within the last 30 days?: No - Travel/Exposure Within Last Year Have you traveled outside the [place] in the last year?: No - Additonal Travel Details Have you been exposed to anyone with a communicable illness?: No - Travel Symptoms Symptom Screening: None Review of Systems Constitutional: Denies: Chills, Fever, Malaise, Weakness Eyes: Denies: Eye discharge ENT: Reports: Congestion. Denies: Throat pain Respiratory: Reports: Cough, Dyspnea, Wheezes. Denies: Hemoptysis, Stridor Cardiovascular: Denies: Chest pain, Palpitations, Syncope Endocrine: Denies: Fatigue Gastrointestinal: Denies: Abdominal pain, Diarrhea, Nausea, Vomiting Genitourinary: Denies: Dysuria, Frequency, Hematuria Musculoskeletal: Denies: Arthralgia, Back pain, Joint swelling, Myalgia Skin: Denies: Bruising, Change in color, Rash Neurological: Denies: Confusion, Headache, Numbness, Weakness Psychiatric: Denies: Anxiety Hematological/Lymphatic: Denies: Blood Clots, Easy bleeding, Easy bruising, Swollen glands Past Medical History - SOCIAL HISTORY Smoking Status: Former smoker Alcohol Use: None Drug Use: None - RESPIRATORY Hx Respiratory Disorders: Yes Hx Asthma: Yes Hx Bronchitis: Yes Hx COPD: No Hx Dyspnea: Yes Hx Pneumonia: Yes Hx Pulmonary Embolism: No Hx Sleep Apnea: No Hx Tuberculosis: No Hx of CPAP: No - CARDIOVASCULAR Hx Cardio Disorders: No Hx Abnormal EKG: No Hx Cardiac Cath: No Hx Chest Pain: No Hx CHF: No Hx Deep Vein Thrombosis: No Hx Edema: No Hx Heart Attack: No Hx Hypertension: No Hx Hypotension: No Hx Irregular Heartbeat: No Hx Palpitations: No Hx Pacemaker/Defib: No Hx Vascular Disease: No - NEURO Hx Neuro Disorders: No Hx Brain Tumor: No Hx CVA: No Hx Dementia: No Hx Dizziness: No Hx Headaches: No Hx Neuropathy: No Hx Parkinson's Disease: No Hx Seizures: No Hx Speech Problem: No Hx TIA: No - GI Hx GI Disorders: Yes Hx Abdominal Pain: No Hx Celiac Disease: No Hx Crohn's Disease: No Hx Diverticulitis: No Hx GI Bleed: No Hx Reflux: Yes Hx Hepatitis/Jaundice: Yes (Hep C) Hx Hiatal Hernia: Yes Hx Irritable Bowel: No Hx Liver Disease: Yes Hx Nausea/Vomiting: No Hx Obstructive Bowel: No Hx Pancreatitis: Yes Hx Rectal Bleeding: No Hx Ulcer: Yes Hx Wt Loss/Wt Gain: No Hx of Polyps: No - Hx Genitourinary Disorders: Yes Hx Bladder Problem: No Hx Dialysis: No Hx Kidney Stones: No Hx Prostate Problems: No Hx Renal Disease: No Hx UTI: No Comment:: one kidney-L; atypical epididymitis - ENDOCRINE Hx Endocrine Disorders: No Hx Diabetes: No Hx Thyroid Disease: No - MUSCULOSKELETAL Hx Musculoskeletal Disorders: No Hx Arthritis: Yes Hx Back Injury: Yes Hx Fibromyalgia: No Hx Gout: No Hx Musculoskeletal Disease: No Hx Osteoporosis: No - PSYCH Hx Psych Problems: Yes Hx Anxiety: Yes Hx Behavior Problems: No Hx Depression: Yes Hx Emotional Abuse: No Hx Sexual Abuse: No Hx Suicide Attempt: Yes (many years ago) - HEMATOLOGY/ONCOLOGY Hx Hematology/Oncology Disorders: No Hx Anemia: No Hx Blood Disorders: No Hx Bruising: No Hx Cancer: No Hx Clotting Problems: No Hx Sickle Cell Disease: No Hx Unexplained Bleeding: No Hx Blood Transfusions: No Hx Blood Transfusion Reaction: No Family Medical History Any Significant Family History?: Yes Family Hx Comment (NOT TO BE USED IN PLACE OF ITEMS BELOW): Sister - Mckeon's syndrome Hx Alcohol Use: Father, Mother Hx Anxiety: Brother/Sister Hx Cancer: Mother, Children *Cancer Comment: son with Leukemia Hx Depression: Brother/Sister Hx Diabetes: Father Hx Resp Disorders: Father Hx Stroke: Mother H&P Meds/Allergies - Allergies Allergies: Allergies Allergy/AdvReac Type Severity Reaction Status Date / Time atorvastatin calcium AdvReac Mild BODY ACHES Verified 03/08/18 14:19 [From Lipitor] sulfamethoxazole AdvReac Mild VOMITING Verified 03/08/18 14:19 [From Bactrim] trimethoprim [From Bactrim] AdvReac Mild VOMITING Verified 03/08/18 14:19 - Home Medications Previous Rx's Medication Instructions Recorded Fluticasone/Salmeterol [Advair Hfa 8 gm IH BID #1 hfa.aer.ad 03/07/18 45-21 Mcg Inhaler] Prednisone [Prednisone 20Mg] 20 mg PO BID #10 tab 03/07/18 - Active Medications Active Medications: Current Medications Acetaminophen (Tylenol 500mg Tab) 500 mg PO Q6H PRN PRN Reason: PAIN/TEMP Last Admin: 03/09/18 00:38 Dose: 500 mg Albuterol Sulfate () 2.5 mg INH RESP.Q2H PRN PRN Reason: DIFFICULTY IN BREATHING Last Admin: 03/08/18 20:35 Dose: 2.5 mg Albuterol/Ipratropium (Duoneb) 3 ml INH RESP.Q4H.WA [facility] Last Admin: 03/09/18 06:05 Dose: 3 ml Azithromycin (Zithromax) 500 mg PO DAILY [facility] Citalopram Hydrobromide (Celexa) 40 mg PO DAILY [facility] Last Admin: 03/08/18 21:25 Dose: 40 mg Diphenhydramine HCl (Benadryl Capsule) 50 mg PO QHS PRN PRN Reason: INSOMNIA Last Admin: 03/08/18 21:25 Dose: 50 mg Enoxaparin Sodium (Lovenox) 40 mg SC DAILY [facility] Ceftriaxone Sodium 1 gm/ (Sodium Chloride) 100 mls @ 100 mls/hr IVPB Q24H [facility] Stop: 03/13/18 16:15 Last Infusion: 03/08/18 18:13 Dose: Infused Methylprednisolone Sodium Succinate (Solu-Medrol) 60 mg IVP DAILY [facility] Naproxen (Naprosyn) 500 mg PO Q12H PRN PRN Reason: PAIN/TEMP Last Admin: 03/08/18 22:02 Dose: 500 mg Nicotine (Nicotine 21mg) 1 patch TD Q24H [facility] Last Admin: 03/08/18 16:26 Dose: Not Given Pantoprazole Sodium (Protonix) 40 mg PO DAILYAC [facility] Last Admin: 03/09/18 06:34 Dose: 40 mg Propranolol HCl (Inderal) 20 mg PO BID [facility] Last Admin: 03/08/18 21:25 Dose: 20 mg Physical Exam - Vital Signs Vital Signs: Vital Signs - Last 24 Hrs Temp Pulse Pulse Resp BP BP Pulse Ox 03/09/18 08:00 98.1 F 81 16 132/87 95 03/09/18 06:05 80 16 97 03/09/18 00:14 97.9 F 82 20 146/85 94 L 03/08/18 22:43 104 H 18 96 03/08/18 20:35 93 H 20 96 03/08/18 17:44 83 17 98 03/08/18 17:42 79 17 97 03/08/18 16:14 98.1 F 67 22 126/86 96 03/08/18 16:00 60 18 127/88 95 03/08/18 14:26 77 17 94 L 03/08/18 14:22 97.9 F 74 22 121/74 94 L 03/08/18 14:20 60 18 130/77 95 - General General Appearance: Alert, Oriented x3, Cooperative, No acute distress Limitations: No limitations - Head Head exam: Atraumatic, Normal inspection - Eye Eye exam: Normal appearance, PERRL. negative: Conjunctival injection, Scleral icterus - ENT ENT exam: Normal exam, Mucous membranes moist Ear exam: Normal external inspection Nasal Exam: Normal inspection Mouth exam: Normal external inspection Teeth exam: Normal inspection Throat exam: Normal inspection. negative: Tonsillar erythema, Tonsillomegaly, Tonsillar exudate, R peritonsillar mass, L peritonsillar mass - Neck Neck exam: Normal inspection, Full ROM. negative: Tenderness - Respiratory Respiratory exam: Decreased breath sounds, Prolonged expiratory, Wheezes (left upper lobe). negative: Normal lung sounds bilaterally, Accessory muscle use, Respiratory distress, Rhonchi - Cardiovascular Cardiovascular Exam: Regular rate, Normal rhythm, Normal heart sounds Peripheral Pulses: 2+: Radial (R), Radial (L) - GI/Abdominal GI/Abdominal exam: Soft. negative: Hypoactive bowel sounds, Tenderness - Rectal Rectal exam: Deferred - exam: Deferred - Extremities Extremities exam: Normal inspection, Full ROM, Normal capillary refill. negative: Pedal edema, Tenderness - Back Back exam: Reports: Normal inspection, Full ROM. Denies: CVA tenderness (R), CVA tenderness (L), Muscle spasm, Rash noted, Tenderness - Neurological Neurological exam: Alert, Normal gait, Oriented X3 - Psychiatric Psychiatric exam: Normal affect, Normal mood - Skin Skin exam: Dry, Intact, Normal color, Warm Results - Labs Result Diagrams: 03/08/18 14:40 03/08/18 14:40 Labs Last 24 Hours: Laboratory Results - last 24 hr 03/08/18 03/08/18 03/08/18 14:40 14:40 14:40 WBC 8.4 RBC 4.68 Hgb 14.0 Hct 40.8 L MCV 87.2 MCH 29.9 MCHC 34.3 RDW 13.3 Plt Count 243 MPV 10.1 Gran % 79.4 Lymphocytes % 12.4 L Monocytes % 7.9 Eosinophils % 0.1 Basophils % 0.2 Sodium 141 Potassium 4.2 Chloride 101 Carbon Dioxide 25.0 Anion Gap 15.0 BUN 22 H Creatinine 0.9 Estimated GFR > 60 Random Glucose 197 H Calcium 9.3 Influenza Type A Ag Negative Influenza Type B Ag Negative - Imaging and Cardiology Chest x-ray Status: Report reviewed (03/07- chronic interstitial changes; NAP) VTE H&P Assessment - Risk for VTE Risk for VTE: Yes Risk Level: Moderate Risk Assessment Date: 03/09/18 Risk Assessment Time: 12:48 VTE Orders Placed or Will Be Placed: Yes Plan - Detailed Diagnosis and Plan (1) Asthma exacerbation Current Visit: Yes Status: Acute Qualifiers: Base Code: J45.901 - UNSPECIFIED ASTHMA WITH (ACUTE) EXACERBATION Comment: -CXR negative for acute process. wbc count within normal and patient is afebrile satting 95% on room. Continues to have ROSA with audible wheezing. -continue prednisone 60mg IV daily -continue rocephin 1gm q12 IV and azithromycin 500mg po daily -continue duoneb q4H prn while awake and albuterol q2H prn -discussed use of advair. having difficulty affording prescription. will try and get home nebulizer set up. May be cheaper to use nebulized budesonide bid with duoneb treatments. He also has seasonal allergies with PND and rhinitis. Will add singulair 10mg po daily and flonase 1NS daily. -vitals q8H (2) Tobacco dependence Current Visit: Yes Status: Acute Base Code: F17.200 - NICOTINE DEPENDENCE, UNSPECIFIED, UNCOMPLICATED Comment: 03/09/18- patient is an active smoker ( packs/daily) - cessation counseling given x10 minutes. has patches at home and discussed setting up [facility] counseling as outpatient (3) DVT prophylaxis Current Visit: Yes Status: Acute Base Code: [id number] - Comment: 03/09/18- patient moderate risk with age and restricted mobility -lovenox 40mg sq daily (4) Full code status Current Visit: No Status: Acute Base Code: Z78.9 - OTHER SPECIFIED HEALTH STATUS Comment: 03/09/18- patient is full code - Disposition plan to discharge home tomorrow if he continues to improve. will write script for nebulizer and have respiratory therapy provide to patient. [facility] rn wound care has set up follow up already.
[2018-03-09] MEDS ORDERED: ENOXAPARIN 40 MG/0.4 ML SYR SC SCH (10:00)
[2018-03-09] MEDS ORDERED: NICOTINE 21 MG/24 HOUR PATCH TD SCH (10:00)
[2018-03-09] MEDS ORDERED: PHENOL SORE THROAT SPRAY 177 ML BTL MM PRN (10:28)
[2018-03-09] MEDS: PROPRANOLOL HCL 10 MG TABLET PO SCH ×2 (10:34→21:44)
[2018-03-09] MEDS: CITALOPRAM 20 MG TABLET PO SCH ×2 (10:34→21:47)
[2018-03-09] MEDS: AZITHROMYCIN 500 MG TABLET PO SCH (10:40)
[2018-03-09] MEDS: NAPROXEN 250 MG TABLET PO SCH ×2 (10:50→21:44)
[2018-03-09] MEDS ORDERED: FLUTICASONE PROPIONATE 50MCG NASAL 16 GM BTL SCH (12:30)
[2018-03-09] MEDS: BREO (FLUTICASONE/VILANTEROL) 100MCG/25MCG INHALER INH SCH (13:16)
[2018-03-09] MEDS: CEFTRIAXONE 1GM/50ML BAG 1 GM/50 ML BAG IVPB SCH ×2 (15:08→21:43)
[2018-03-09] MEDS: PANTOPRAZOLE SODIUM 40 MG TABLET PO SCH (21:45)
[2018-03-09] MEDS: DIPHENHYDRAMINE HCL 25 MG CAPSULE PO PRN (21:53)
[2018-03-09] MEDS ORDERED: MONTELUKAST SODIUM 10MG TABLET PO SCH (22:00)
[2018-03-10] MEDS: ALBUTEROL SULFATE (0.083%) 2.5 MG/3 ML NEB INH PRN (00:06)
[2018-03-10] MEDS: IPRATROPIUM/ALBUTEROL (0.5MG/3MG) NEB INH SCH ×2 (06:10→10:09)
[2018-03-10] MEDS: PANTOPRAZOLE SODIUM 40 MG TABLET PO SCH (06:32)
--- NOTE | 2018-03-10 09:23 | Discharge Summary ---
Providers Discharge Summary Date: 03/10/18 Date of admission: 03/08/18 16:02 Attending physician: SANJANA CUMMINS Primary care physician: SANJANA CUMMINS Physical Exam - Vital Signs Vital Signs: Vital Signs - Last 24 Hrs Temp Pulse Pulse Resp BP Pulse Ox 03/10/18 06:10 83 16 97 03/10/18 00:06 68 16 03/10/18 00:00 97.9 F 74 16 130/75 95 03/09/18 21:51 84 16 96 03/09/18 17:27 96 03/09/18 17:23 81 17 99 03/09/18 16:00 98.7 F 87 16 120/94 97 03/09/18 15:03 82 16 96 03/09/18 14:20 80 16 96 03/09/18 11:20 84 16 95 03/09/18 11:19 16 - General General Appearance: Alert, Oriented x3, Cooperative, No acute distress Limitations: No limitations - Head Head exam: Atraumatic, Normal inspection - Eye Eye exam: Normal appearance, PERRL. negative: Conjunctival injection, Scleral icterus - ENT ENT exam: Normal exam, Mucous membranes moist Ear exam: Normal external inspection Nasal Exam: Normal inspection Mouth exam: Normal external inspection Teeth exam: Normal inspection Throat exam: Normal inspection. negative: Tonsillar erythema, Tonsillomegaly, Tonsillar exudate, R peritonsillar mass, L peritonsillar mass - Neck Neck exam: Normal inspection, Full ROM. negative: Tenderness - Respiratory Respiratory exam: Decreased breath sounds, Prolonged expiratory, Wheezes (left upper lobe). negative: Normal lung sounds bilaterally, Accessory muscle use, Respiratory distress, Rhonchi - Cardiovascular Cardiovascular Exam: Regular rate, Normal rhythm, Normal heart sounds Peripheral Pulses: 2+: Radial (R), Radial (L) - GI/Abdominal GI/Abdominal exam: Soft. negative: Hypoactive bowel sounds, Tenderness - Rectal Rectal exam: Deferred - exam: Deferred - Extremities Extremities exam: Normal inspection, Full ROM, Normal capillary refill. negative: Pedal edema, Tenderness - Back Back exam: Reports: Normal inspection, Full ROM. Denies: CVA tenderness (R), CVA tenderness (L), Muscle spasm, Rash noted, Tenderness - Neurological Neurological exam: Alert, Normal gait, Oriented X3 - Psychiatric Psychiatric exam: Normal affect, Normal mood - Skin Skin exam: Dry, Intact, Normal color, Warm Hospitalization - Hospitalization Admission Diagnosis: Asthma exacerbation - Problem List/Discharge Diagnosis (1) Asthma exacerbation Current Visit: No Status: Acute Discharge Diagnosis: Base Code: J45.901 - UNSPECIFIED ASTHMA WITH (ACUTE) EXACERBATION Comment: - 03/10/18-CXR negative for acute process. wbc count within normal and patient is afebrile satting 95% on room. Continues to have ROSA with audible wheezing. - prednisone 40mg PO daily - d/c rocephin 1gm q12 IV and azithromycin 500mg po daily. Change to Doxycycline 100mg PO BID x 5days. -continue duoneb q4H prn while awake and albuterol q2H prn. Nebulizers at home QID PRN, - Singualir 10mg QD (2) Tobacco dependence Current Visit: No Status: Acute Base Code: F17.200 - NICOTINE DEPENDENCE, UNSPECIFIED, UNCOMPLICATED Comment: 03/09/18-03/10/18: patient is an active smoker ( 1/2 packs/daily) - again discussed the need for smoking cessation. - will discuss BH on next visit in the office. Tried Chantix 2x 2. To continue nicotine patches at home. (3) Depression Current Visit: No Status: Acute Base Code: F32.9 - MAJOR DEPRESSIVE DISORDER , SINGLE EPISODE, UNSPECIFIED Comment: - stable on Citalopram (4) DVT prophylaxis Current Visit: No Status: Acute Base Code: [id number] - Comment: 03/09/18-03/10 - patient moderate risk with age and restricted mobility -lovenox 40mg sq daily - Hospitalization Course Disposition: Home, Self-Care Hospital Course: 42 yo male presents again to the ED with cough, shortness of breath and wheezing. He has a history of COPD asthma, GERD, hepatitis C, hiatal hernia, arthritis, anxiety and depression. He is a current smoker. He was seen in the [facility] ED Friday and was discharged home due to feeling better. No fever. No chest pain. He states since leaving the ED his sputum is slightly yellow now and his wheezing is more persistent especially with walking so he returned to the ED on Friday Patient had CXR on 03/07/18 showing chronic interstitial changes but no acute process. CXR was not repeated on Friday. His room air O2 sats were in the low 90 's. WBC count was 8.4. CMP was unremarkable. Patient received solumedrol 60mg IV in the ED along with duoneb breathing treatments. He was started on rocephin and azithromycin and admitted for COPD/asthma exacerbation 03/09/18- Patient states he is somewhat improved from yesterday. He says his breathing is not as tight as it was yesterday when he came in. He is still having wheezing and some cough, but improved from yesterday. Denies shortness of breath at rest. Says he does get a little winded with ambulation. Has been satting 95% on room air at rest. Patient states he has started smoking again due to stress but would like to quit. has patches at home. has tried chantix 2x without success. mentions it is more to do stress than nicotine cravings. Has never met with [facility] counseling in the clinic but would be interested. Patient had PFT;s on 01/06 showing moderate obstructive pattern with significant bronchodilator response. He had been started on advair as outpatient in November but can't afford the prescription so was getting samples. He was given 100/ 50mcg dose. He isn't sure if he has had any improvement with the advair. he does admit to having seasonal allergies with lots of post nasal drainage and sinus congestion. 03/10: the patient is awake, alert and oriented x 3. He is sitting up in bed and not requiring any supplemental oxygen at this time. His vitals are 02 sats 95% RA, HR 81, RR 16, BP 130/83. He has mild wheezing in the upper lungs bilaterally but no rales/ronchi. pcp: Dr. Cummins Procedures: Cardiology Procedures 03/08/18 14:30 Senior Teller NOW 03/08/18 16:14 Senior Teller .Continuous Abnormal Labs: Abnormal Lab Results 03/08/18 03/08/18 Range/Units 14:40 14:40 Hct 40.8 L (42.0-52.0) % Lymphocytes % 12.4 L (16-45) % BUN 22 H (6-20) mg/dL Random Glucose 197 H (74-109) mg/dL Condition at Discharge: (2) Stable Discharge Diagnosis: Acute asthma exacerbation Discharge Medications - Discharge Medications Prescriptions: Montelukast Sodium [Singulair] 10 mg PO QHS #30 tab Doxycycline Hyclate 100 mg PO BID #10 tab. Home Medications: Ambulatory Orders Multivitamin [Multi-Vitamin Daily] 1 each PO DAILY 11/01/14 [Last Taken 03/08/18 ] Milk Thistle 150 mg PO TID 06/04/15 [Last Taken 03/08/18] [place] Red 1 tab DAILY 08/21/17 [Last Taken 03/08/18] Albuterol Sulfate [Proair Hfa] 2 puff INH ASDIR 03/07/18 [Last Taken 03/08/18] Fluticasone/Salmeterol [Advair Hfa 45-21 Mcg Inhaler] 2 puff INH DAILY 03/07/18 [Last Taken 03/08/18] Fluticasone/Salmeterol [Advair Hfa 45-21 Mcg Inhaler] 8 gm IH BID #1 hfa.aer.ad 03/07/18 [Last Taken 03/08/18] Prednisone [Prednisone 20Mg] 20 mg PO BID #10 tab 03/07/18 [Last Taken 03/08/18] Doxycycline Hyclate 100 mg PO BID #10 tab 03/10/18 [Last Taken Unknown] Montelukast Sodium [Singulair] 10 mg PO QHS #30 tab 03/10/18 [Last Taken Unknown ] Discharge Plan - Discharge Instructions Activity at Discharge: Resume Usual Activities As Tolerated Diet at Discharge: Regular Diet Quality Measures - Quality Measures Quality Measures: Documentation of Current Medications in Medical Record, Screening for High Blood Pressure and F/U Documented - Current Medications Quality Measure: Measure #130: Documentation of Current Medications Documentation of Current Medications: <Current Medications Documented/Reviewed> [G8427] - Blood Pressure Screening Quality Measure: Screening for High Blood Pressure and Follow-Up Documented Does Patient Have Any of the Following: Active Dx of HTN Blood Pressure Classification: Pre-Hypertensive BP Reading Systolic Measurement: 127 Diastolic Measurement: 88 Screening for High Blood Pressure: Patient Exclusion, Hx of HTN [G9744] - Heart Failure (MASOOD/ARB Therapy) Left Ventricular Systolic Function: Unknown MASOOD Inhibitor or ARB Therapy for LVSD: Not Eligible - Elder Abuse Suspicion Index EASI Reference Information: Enrique BOOKER, Tanisha C, Shabbir D, Vanessa Matos.Development and validation of a tool to assist physicians identification of elder abuse: The Elder Abuse Suspicion Index (EASI ). Journal of Elder Abuse and Neglect, 2008; 20 (3): 276-300.
[2018-03-10] MEDS: CITALOPRAM 20 MG TABLET PO SCH (09:38)
[2018-03-10] MEDS: METHYLPREDNISOLONE PF 125MG/VIAL IVP SCH (09:38)
[2018-03-10] MEDS: NAPROXEN 250 MG TABLET PO PRN (09:39)
[2018-03-10] MEDS: PROPRANOLOL HCL 10 MG TABLET PO SCH (09:39)
[2018-03-10] MEDS: AZITHROMYCIN 500 MG TABLET PO SCH (09:39)
== END 2018-03-10 10:44 | disposition home or self-care (01) | DRG 202 ==
LOC: ER 13:59 → OBSVTOIN 16:02 → MEDSURG 16:02
PROVIDERS: ADMIT Internal Medicine; ATTEND Internal Medicine
DX: J45.901 Unspecified asthma with (acute) exacerbation (principal); K85.90 Acute pancreatitis without necrosis or infection, unspecified; J06.9 Acute upper respiratory infection, unspecified; F17.210 Nicotine dependence, cigarettes, uncomplicated; B19.20 Unspecified viral hepatitis C without hepatic coma; K25.9 Gastric ulcer, unspecified as acute or chronic, without hemorrhage or perforation; N45.1 Epididymitis; Z90.5 Acquired absence of kidney; K44.9 Diaphragmatic hernia without obstruction or gangrene; F32.9 Major depressive disorder, single episode, unspecified
CPT/HCPCS: 80048; 85025; 87400; 94640; 94760; 94761; 99223; 99239; 99285; J0696; J1650; J2930; J7613

== ENCOUNTER 2018-07-13 19:46 | Emergency (ER) | payer BC, MEDICAID ==
[2018-07-13] MEDS ORDERED: PREDNISONE 20 MG TAB PO ONE (21:26)
[2018-07-13] MEDS ORDERED: CEPHALEXIN 500 MG CAPSULE PO STA (21:26)
--- NOTE | 2018-07-13 21:30 | Emergency Department Record ---
History of Present Illness - General Chief complaint: Bite Insect/other Stated complaint: BEE STING Time Seen by Provider: 07/13/18 21:22 Source: Patient Mode of Arrival: Ambulatory Limitations: No limitations - History of Present Illness Initial comments: 43 yo male presents after a Bee sting to the left forearm and left flank on Friday. He has persistent swelling of both. No shortness of breath. No other hives. He is otherwise asymptomatic. MD complaint: Rash Onset/Timin -: Days(s) Hx Tetanus Toxoid Vaccination: Yes Patient Tetanus UTD (within 5 yrs): No Severity: Moderate Quality: Aching Consistency: Constant, Getting worse Improves with: Cold therapy Worsens with: None Context: Witnessed insect bite Associated symptoms: Denies other symptoms - Related Data Previous Rx's Medication Instructions Recorded Cephalexin [Keflex] 500 mg PO TID #21 cap 07/13/18 Prednisone [Prednisone 20Mg] 20 mg PO BID #10 tab 07/13/18 Allergies Allergy/AdvReac Type Severity Reaction Status Date / Time atorvastatin calcium AdvReac Mild BODY ACHES Unverified 03/18/18 09:04 [From Lipitor] sulfamethoxazole AdvReac Mild VOMITING Unverified 03/18/18 09:04 [From Bactrim] trimethoprim [From Bactrim] AdvReac Mild VOMITING Unverified 03/18/18 09:04 Travel Screening - Travel/Exposure Within Last 30 Days Have you traveled within the last 30 days?: No - Travel Symptoms Symptom Screening: None Review of Systems Constitutional: Denies: Chills, Fever, Weakness Eyes: Denies: Eye discharge ENT: Denies: Congestion, Throat pain Respiratory: Denies: Cough, Dyspnea, Hemoptysis, Stridor, Wheezes Cardiovascular: Denies: Chest pain, Palpitations, Syncope Endocrine: Denies: Fatigue Gastrointestinal: Denies: Abdominal pain, Diarrhea, Nausea, Vomiting Genitourinary: Denies: Dysuria, Frequency, Hematuria Musculoskeletal: Denies: Arthralgia, Back pain, Joint swelling, Myalgia Skin: Reports: Rash. Denies: Bruising, Change in color Neurological: Denies: Confusion, Headache, Numbness, Weakness Psychiatric: Denies: Anxiety Hematological/Lymphatic: Denies: Easy bleeding, Easy bruising Past Medical History - SOCIAL HISTORY Smoking Status: Former smoker Alcohol Use: None Drug Use: None - RESPIRATORY Hx Respiratory Disorders: Yes Hx Asthma: Yes Hx Bronchitis: Yes Hx COPD: No Hx Dyspnea: Yes Hx Pneumonia: Yes Hx Pulmonary Embolism: No Hx Sleep Apnea: No Hx Tuberculosis: No Hx of CPAP: No - CARDIOVASCULAR Hx Cardio Disorders: No Hx Abnormal EKG: No Hx Cardiac Cath: No Hx Chest Pain: No Hx CHF: No Hx Deep Vein Thrombosis: No Hx Edema: No Hx Heart Attack: No Hx Hypertension: No Hx Hypotension: No Hx Irregular Heartbeat: No Hx Palpitations: No Hx Pacemaker/Defib: No Hx Vascular Disease: No - NEURO Hx Neuro Disorders: No Hx Brain Tumor: No Hx CVA: No Hx Dementia: No Hx Dizziness: No Hx Headaches: No Hx Neuropathy: No Hx Parkinson's Disease: No Hx Seizures: No Hx Speech Problem: No Hx TIA: No - GI Hx GI Disorders: Yes Hx Abdominal Pain: No Hx Celiac Disease: No Hx Crohn's Disease: No Hx Diverticulitis: No Hx GI Bleed: No Hx Reflux: Yes Hx Hepatitis/Jaundice: Yes (Hep C) Hx Hiatal Hernia: Yes Hx Irritable Bowel: No Hx Liver Disease: Yes Hx Nausea/Vomiting: No Hx Obstructive Bowel: No Hx Pancreatitis: Yes Hx Rectal Bleeding: No Hx Ulcer: Yes Hx Wt Loss/Wt Gain: No Hx of Polyps: No - Hx Genitourinary Disorders: Yes Hx Bladder Problem: No Hx Dialysis: No Hx Kidney Stones: No Hx Prostate Problems: No Hx Renal Disease: No Hx UTI: No Comment:: one kidney-L; atypical epididymitis - ENDOCRINE Hx Endocrine Disorders: No Hx Diabetes: No Hx Thyroid Disease: No - MUSCULOSKELETAL Hx Musculoskeletal Disorders: No Hx Arthritis: Yes Hx Back Injury: Yes Hx Fibromyalgia: No Hx Gout: No Hx Musculoskeletal Disease: No Hx Osteoporosis: No - PSYCH Hx Psych Problems: Yes Hx Anxiety: Yes Hx Behavior Problems: No Hx Depression: Yes Hx Emotional Abuse: No Hx Sexual Abuse: No Hx Suicide Attempt: Yes (many years ago) - HEMATOLOGY/ONCOLOGY Hx Hematology/Oncology Disorders: No Hx Anemia: No Hx Blood Disorders: No Hx Bruising: No Hx Cancer: No Hx Clotting Problems: No Hx Sickle Cell Disease: No Hx Unexplained Bleeding: No Hx Blood Transfusions: No Hx Blood Transfusion Reaction: No Family Medical History Any Significant Family History?: Yes Family Hx Comment (NOT TO BE USED IN PLACE OF ITEMS BELOW): Sister - Mckeon's syndrome Hx Alcohol Use: Father, Mother Hx Anxiety: Brother/Sister Hx Cancer: Mother, Children *Cancer Comment: son with Leukemia Hx Depression: Brother/Sister Hx Diabetes: Father Hx Resp Disorders: Father Hx Stroke: Mother Physical Exam - General General Appearance: Alert, Oriented x3, Cooperative, No acute distress Limitations: No limitations - Head Head exam: Normal inspection - Eye Eye exam: Normal appearance. negative: Conjunctival injection - ENT ENT exam: Normal exam, Mucous membranes moist Ear exam: Normal external inspection Nasal Exam: Normal inspection Mouth exam: Normal external inspection Teeth exam: Normal inspection - Neck Neck exam: Normal inspection - Respiratory Respiratory exam: Normal lung sounds bilaterally. negative: Respiratory distress - Cardiovascular Cardiovascular Exam: Regular rate, Normal rhythm, Normal heart sounds - GI/Abdominal GI/Abdominal exam: Soft, Other (Area of hive on the left flank). negative: Tenderness - Rectal Rectal exam: Deferred - exam: Deferred - Extremities Extremities exam: Full ROM. negative: Normal inspection, Calf tenderness, Joint swelling, Pedal edema Image of Full Body: 1 - erythema, no pus, no pustules - Back Back exam: Reports: Other (left flank hive). Denies: Normal inspection - Neurological Neurological exam: Alert, Oriented X3 - Psychiatric Psychiatric exam: Normal affect, Normal mood - Skin Skin exam: Erythema, Rash Course Vital Signs 07/13/18 20:55 Temperature 98.6 F Pulse Rate 76 Respiratory 20 Rate Blood Pressure 135/87 Pulse Ox 96 Disposition Disposition: Discharge Clinical Impression: Local reaction to bee sting Disposition: Home, Self-Care Condition: (1) Good Instructions: Insect Bite or Sting (ED) Additional Instructions: Call your doctor for a recheck this week Return if worse, fever or any new concerns Prescriptions: Cephalexin [Keflex] 500 mg PO TID #21 cap Prednisone [Prednisone 20Mg] 20 mg PO BID #10 tab Forms: Patient Portal Access Time of Disposition: 21:30 Quality - Quality Measures Quality Measures: N/A - Blood Pressure Screening Does Patient Have Any of the Following: No Blood Pressure Classification: Pre-Hypertensive BP Reading Systolic Measurement: 130 Diastolic Measurement: 87 Screening for High Blood Pressure: < Pre-Hypertensive BP, F/U Documented > [ G8950] Pre-Hypertensive Follow-up Interventions: Referral to alternative/primary care provider.
== END 2018-07-13 21:38 | disposition home or self-care (01) ==
LOC: ER 19:46
DX: T63.441A Toxic effect of venom of bees, accidental (unintentional), initial encounter (principal); R22.32 Localized swelling, mass and lump, left upper limb; Z87.891 Personal history of nicotine dependence
CPT/HCPCS: 99282; J7512

== ENCOUNTER 2019-03-28 15:42 | Emergency (ER) | payer BC, MEDICAID ==
--- NOTE | 2019-03-28 16:17 | Emergency Department Record ---
History of Present Illness - General Chief Complaint: Headache Migraine Stated Complaint: HEADACHE Time Seen by Provider: 03/28/19 16:14 Source: Patient Mode of Arrival: Ambulatory Limitations: No limitations - History of Present Illness Initial Comments: 43 yo male presents with acute pain that started last night. The pain started in the right face in the area of lateral maxillary area, the pain remains there but has migrated to in front of the ear, above the ear, to reach just about to the spiritism. No fever, vision changes, eye pain, facial muscle weakness, numbness. No swelling. It is tender to palpation. No rash or blisters. He has dentures with no tender areas. No autoimmune diseases. MD Complaint: Other (Facial pain) Onset/Timin -: Days(s) Onset Description: Sudden Location: Facial, Occipital, Right, Temporal Severity scale (1-10): 3 Quality: Aching Consistency: Intermittent Improves With: Nothing Worsens With: None Treatments Prior to Arrival: None - Related Data Allergies Allergy/AdvReac Type Severity Reaction Status Date / Time atorvastatin calcium AdvReac Mild BODY ACHES Verified 03/28/19 16:12 [From Lipitor] sulfamethoxazole AdvReac Mild VOMITING Verified 03/28/19 16:12 [From Bactrim] trimethoprim [From Bactrim] AdvReac Mild VOMITING Verified 03/28/19 16:12 Travel Screening - Travel/Exposure Within Last 30 Days Have you traveled within the last 30 days?: No Review of Systems Constitutional: Denies: Chills, Fever, Weakness Eyes: Denies: Eye discharge ENT: Denies: Congestion, Throat pain Respiratory: Denies: Cough Cardiovascular: Denies: Chest pain, Syncope Endocrine: Denies: Fatigue Gastrointestinal: Denies: Abdominal pain, Diarrhea, Nausea, Vomiting Genitourinary: Denies: Dysuria, Frequency, Hematuria Neurological: Reports: Headache. Denies: Abnormal gait, Confusion, Numbness, Tingling, Tremors, Weakness Psychiatric: Denies: Anxiety Hematological/Lymphatic: Denies: Easy bleeding, Easy bruising Past Medical History - SOCIAL HISTORY Smoking Status: Former smoker Drug Use: None - RESPIRATORY Hx Respiratory Disorders: Yes Hx Asthma: Yes Hx Bronchitis: Yes Hx COPD: No Hx Dyspnea: Yes Hx Pneumonia: Yes Hx Pulmonary Embolism: No Hx Sleep Apnea: No Hx Tuberculosis: No Hx of CPAP: No - CARDIOVASCULAR Hx Cardio Disorders: No Hx Abnormal EKG: No Hx Cardiac Cath: No Hx Chest Pain: No Hx CHF: No Hx Deep Vein Thrombosis: No Hx Edema: No Hx Heart Attack: No Hx Hypertension: No Hx Hypotension: No Hx Irregular Heartbeat: No Hx Palpitations: No Hx Pacemaker/Defib: No Hx Vascular Disease: No - NEURO Hx Neuro Disorders: No Hx Brain Tumor: No Hx CVA: No Hx Dementia: No Hx Dizziness: No Hx Headaches: No Hx Neuropathy: No Hx Parkinson's Disease: No Hx Seizures: No Hx Speech Problem: No Hx TIA: No - GI Hx GI Disorders: Yes Hx Abdominal Pain: No Hx Celiac Disease: No Hx Crohn's Disease: No Hx Diverticulitis: No Hx GI Bleed: No Hx Reflux: Yes Hx Hepatitis/Jaundice: Yes (Hep C) Hx Hiatal Hernia: Yes Hx Irritable Bowel: No Hx Liver Disease: Yes Hx Nausea/Vomiting: No Hx Obstructive Bowel: No Hx Pancreatitis: Yes Hx Rectal Bleeding: No Hx Ulcer: Yes Hx Wt Loss/Wt Gain: No Hx of Polyps: No - Hx Genitourinary Disorders: Yes Hx Bladder Problem: No Hx Dialysis: No Hx Kidney Stones: No Hx Prostate Problems: No Hx Renal Disease: No Hx UTI: No Comment:: one kidney-L; atypical epididymitis - ENDOCRINE Hx Endocrine Disorders: No Hx Diabetes: No Hx Thyroid Disease: No - MUSCULOSKELETAL Hx Musculoskeletal Disorders: No Hx Arthritis: Yes Hx Back Injury: Yes Hx Fibromyalgia: No Hx Gout: No Hx Musculoskeletal Disease: No Hx Osteoporosis: No - PSYCH Hx Psych Problems: Yes Hx Anxiety: Yes Hx Behavior Problems: No Hx Depression: Yes Hx Emotional Abuse: No Hx Sexual Abuse: No Hx Suicide Attempt: Yes (many years ago) - HEMATOLOGY/ONCOLOGY Hx Hematology/Oncology Disorders: No Hx Anemia: No Hx Blood Disorders: No Hx Bruising: No Hx Cancer: No Hx Clotting Problems: No Hx Sickle Cell Disease: No Hx Unexplained Bleeding: No Hx Blood Transfusions: No Hx Blood Transfusion Reaction: No Family Medical History Family Hx Comment (NOT TO BE USED IN PLACE OF ITEMS BELOW): Sister - Mckeon's syndrome Hx Alcohol Use: Father, Mother Hx Anxiety: Brother/Sister Hx Cancer: Mother, Children *Cancer Comment: son with Leukemia Hx Depression: Brother/Sister Hx Diabetes: Father Hx Resp Disorders: Father Hx Stroke: Mother Physical Exam - General General Appearance: Alert, Oriented x3, Cooperative, No acute distress Limitations: No limitations - Head Head exam: Atraumatic, Normocephalic, Normal inspection Head exam detail: negative: Abrasion, Contusion, Hematoma, Laceration Image of Face/Head: 1 - area of tenderness, no rash, no swelling, no blisters, no vesicles, normal inspection, it is tender - Eye Eye exam: Normal appearance, PERRL, EOMI. negative: Conjunctival injection, Nystagmus, Periorbital swelling, Scleral icterus Pupils: negative: Irregular, Unequal - ENT ENT exam: Normal exam, Mucous membranes moist, Normal external ear exam, Normal orophraynx, TM's normal bilaterally. negative: Mucous membranes dry Ear exam: Normal external inspection, External canal tenderness. negative: Auricular hematoma, Auricular trauma Nasal Exam: Normal inspection, Foreign body. negative: Active bleeding, Discharge, Dried blood, Sinus tenderness Mouth exam: Normal external inspection Teeth exam: Normal inspection Throat exam: Normal inspection - Neck Neck exam: Normal inspection, Full ROM. negative: Tenderness - Respiratory Respiratory exam: Normal lung sounds bilaterally. negative: Respiratory distress - Cardiovascular Cardiovascular Exam: Regular rate, Normal rhythm, Normal heart sounds - Neurological Neurological exam: Alert, CN II-XII intact, Oriented X3. negative: Altered, Motor sensory deficit - Psychiatric Psychiatric exam: Normal affect, Normal mood - Skin Skin exam: Dry, Intact, Normal color, Warm. negative: Rash Course Vital Signs 03/28/19 16:07 Temperature 98.8 F Pulse Rate 71 Respiratory 18 Rate Blood Pressure 132/77 Pulse Ox 97 - Reevaluation(s) Reevaluation #1: The labs results were reviewed There are no acute significant abnormalities of the CBC There are no acute significant abnormalities of the BMP The CRP is normal 03/28/19 17:09 03/28/19 17:[address] was negative There is no obvious cause of his pain I recommend follow up recheck with is PCP No signs of infection, inflammation, Jacobsen's Palsy, rash, Shingles Medical Decision Making - Lab Data Result diagrams: 03/28/19 16:30 03/28/19 16:30 Disposition Disposition: Discharge Clinical Impression: Facial pain, acute Disposition: Home, Self-Care Condition: (1) Good Instructions: Trigeminal Neuralgia (ED) Additional Instructions: Call your doctor for the next available follow up appointment Review this ER visit and the tests performed with your family doctor Return to the ER for a recheck if worse, any new concerns or questions Forms: Patient Portal Access Time of Disposition: 17:29 Quality - Quality Measures Quality Measures: N/A - Blood Pressure Screening Does Patient Have Any of the Following: No Blood Pressure Classification: Pre-Hypertensive BP Reading Systolic Measurement: 128 Diastolic Measurement: 79 Screening for High Blood Pressure: < Pre-Hypertensive BP, F/U Documented > [G8950] Pre-Hypertensive Follow-up Interventions: Referral to alternative/primary care provider.
[2019-03-28 16:39] LABS: ABSOLUTE NEUTROPHIL COUNT 6.26; BASO % 0.4 % (0-6); EOS % 1.2 % (0-6); GRAN % 77.2 % (47-80); HEMOGLOBIN 13.8 gm/dl (14.0-18.0); LYMPH % 17.3 % (16-45); MEAN CELL VOLUME 85.5 fl (81-97); MEAN CORPUSCULAR HGB CONC 34.5 g/dl (32-36); MEAN PLATELET VOLUME 9.8 fl (7.4-10.4); MONO % 3.9 % (0-9); PLATELET COUNT 333 K/uL (130-400); RED BLOOD COUNT 4.68 M/uL (4.40-5.70); RED CELL DISTRIBUTION WIDTH 13.5 % (11.5-14.5); WHITE BLOOD COUNT W/O DIFF 8.1 K/uL (4.2-12.2)
[2019-03-28 16:41] LABS: MEAN CORPUSCULAR HEMOGLOBIN 29.4 pg (27-33)
[2019-03-28 16:54] LABS: BLOOD UREA NITROGEN 25 mg/dL (6-20); CREATININE 1.1 mg/dL (0.7-1.2); EST GLOMERULAR FILTRATION RATE > 60 mL/min
[2019-03-28 16:56] LABS: GLUCOSE,RANDOM 137 mg/dL (74-109)
[2019-03-28 16:59] LABS: C-REACTIVE PROTEIN 0.33 mg/dL (<0.5)
--- NOTE | 2019-03-30 09:32 | CT SCAN REPORT ---
EXAM: CT OF THE MAXILLOFACIAL BONES WITHOUT CONTRAST HISTORY: HEADACHE. ESPECIALLY RETROORBITAL PAIN. TECHNIQUE: Routine noncontrast CT images of the maxillofacial bones were obtained. Comparison: None. FINDINGS: No facial bone fracture is seen. The paranasal sinuses and mastoid air cells are clear where visualized. The orbital contents are unremarkable. No conclusive MR findings to explain the patient's right retroorbital pain. IMPRESSION: UNREMARKABLE EXAMINATION. NO FINDINGS TO EXPLAIN THE PATIENT'S SYMPTOMATOLOGY. JOB NUMBER: [id number] [facility]
== END 2019-03-28 17:38 | disposition home or self-care (01) ==
LOC: ER 15:42
DX: R51 Headache (principal); H57.11 Ocular pain, right eye; Z87.891 Personal history of nicotine dependence
CPT/HCPCS: 70486; 80048; 85025; 86140; 99283; 99284

== ENCOUNTER 2019-05-25 12:47 | Emergency (ER) | payer BC, MEDICAID ==
[2019-05-25 14:14] LABS: ABSOLUTE NEUTROPHIL COUNT 3.88; BASO % 0.3 % (0-6); GRAN % 64.8 % (47-80); HEMATOCRIT 38.4 % (42.0-52.0); HEMOGLOBIN 13.1 gm/dl (14.0-18.0); LYMPH % 25.7 % (16-45); MEAN CELL VOLUME 84.8 fl (81-97); MEAN CORPUSCULAR HEMOGLOBIN 28.9 pg (27-33); MEAN CORPUSCULAR HGB CONC 34.1 g/dl (32-36); MEAN PLATELET VOLUME 9.6 fl (7.4-10.4); MONO % 6.2 % (0-9); PLATELET COUNT 249 K/uL (130-400); RED BLOOD COUNT 4.53 M/uL (4.40-5.70); RED CELL DISTRIBUTION WIDTH 13.4 % (11.5-14.5)
[2019-05-25 14:27] LABS: BLOOD UREA NITROGEN 20 mg/dL (6-20); CREATININE 1.1 mg/dL (0.7-1.2); EST GLOMERULAR FILTRATION RATE > 60 mL/min; TOTAL PROTEIN 6.8 g/dL (6.6-8.7)
[2019-05-25 14:29] LABS: GLUCOSE,RANDOM 110 mg/dL (74-109)
[2019-05-25 14:32] LABS: ALB/GLOB RATIO 1.4 (1.1-1.8); ALKALINE PHOSPHATASE 78 U/L (40-129); ALT/SGPT 16 U/L (<41); AST/SGOT 21 U/L (10.0-50.0)
[2019-05-25 14:43] LABS: THYROID STIMULATING HORMONE 1.36 uIU/mL (0.270-4.20)
--- NOTE | 2019-05-25 14:55 | Emergency Department Record ---
Anxiety - General Chief Complaint: Anxiety Stated Complaint: ANXIETY,DEPRESSION Time Seen by Provider: 05/25/19 13:44 Source: Patient Mode of Arrival: Ambulatory Limitations: No limitations - History of Present Illness Initial Comments: pt feels anxious and depressed. he has suicidal thoughts and has attempted suicide twice in the past. he has problems with his job and at home. he states he is overwhelmed and doesnt feel safe Complaint: Anxiety, Other Onset/Timin -: Days(s) Place: Home Previous History of Same: Yes Severity: Moderate Improves With: Nothing Worsens With: Nothing Associated symptoms: Denies other symptoms, Nausea/vomiting - Related Data Allergies/Adverse Reactions: Allergies Allergy/AdvReac Type Severity Reaction Status Date / Time atorvastatin calcium AdvReac Mild BODY ACHES Verified 05/25/19 13:10 [From Lipitor] sulfamethoxazole AdvReac Mild VOMITING Verified 05/25/19 13:10 [From Bactrim] trimethoprim [From Bactrim] AdvReac Mild VOMITING Verified 05/25/19 13:10 Travel Screening - Travel/Exposure Within Last 30 Days Have you traveled within the last 30 days?: No - Travel/Exposure Within Last Year Have you traveled outside the [place] in the last year?: No - Additonal Travel Details Have you been exposed to anyone with a communicable illness?: No - Travel Symptoms Symptom Screening: None Review of Systems Reviewed: No additional complaints except as noted below Constitutional: Reports: As per HPI. Denies: Chills, Fever, Malaise, Night sweats, Weakness, Weight change Eyes: Reports: As per HPI. Denies: Eye discharge, Eye pain, Photophobia, Vision change ENT: Reports: As per HPI. Denies: Congestion, Dental pain, Ear pain, Epistaxis, Hearing loss, Throat pain Respiratory: Reports: As per HPI. Denies: Cough, Dyspnea, Hemoptysis, Stridor, Wheezes Cardiovascular: Reports: As per HPI. Denies: Arrhythmia, Chest pain, Dyspnea on exertion, Edema, Murmurs, Orthopnea, Palpitations, Paroxysmal nocturnal dyspnea, Rheumatic Fever, Syncope Endocrine: Reports: As per HPI. Denies: Fatigue, Heat or cold intolerance, Polydipsia, Polyuria Gastrointestinal: Reports: As per HPI. Denies: Abdominal pain, Constipation, Diarrhea, Hematemesis, Hematochezia, Melena, Nausea, Vomiting Genitourinary: Reports: As per HPI. Denies: Dysuria, Frequency, Hematuria, Incontinence, Retention, Testicular pain, Testicular mass, Urgency Musculoskeletal: Reports: As per HPI. Denies: Arthralgia, Back pain, Gout, Joint swelling, Myalgia, Neck pain Skin: Reports: As per HPI. Denies: Bruising, Change in color, Change in hair/nails, Lesions, Pruritus, Rash Neurological: Reports: As per HPI. Denies: Abnormal gait, Confusion, Headache, Numbness, Paresthesias, Seizure, Tingling, Tremors, Vertigo, Weakness Psychiatric: Reports: As per HPI, Anxiety, Depression, Suicidal thoughts. Denies: Auditory hallucinations, Homicidal thoughts, Visual hallucinations Hematological/Lymphatic: Reports: As per HPI. Denies: Anemia, Blood Clots, Easy bleeding, Easy bruising, Swollen glands Past Medical History - SOCIAL HISTORY Smoking Status: Current every day smoker Alcohol Use: None Drug Use: None - RESPIRATORY Hx Respiratory Disorders: Yes Hx Asthma: Yes Hx Bronchitis: Yes Hx COPD: No Hx Dyspnea: Yes Hx Pneumonia: Yes Hx Pulmonary Embolism: No Hx Sleep Apnea: No Hx Tuberculosis: No Hx of CPAP: No - CARDIOVASCULAR Hx Cardio Disorders: No Hx Abnormal EKG: No Hx Cardiac Cath: No Hx Chest Pain: No Hx CHF: No Hx Deep Vein Thrombosis: No Hx Edema: No Hx Heart Attack: No Hx Hypertension: No Hx Hypotension: No Hx Irregular Heartbeat: No Hx Palpitations: No Hx Pacemaker/Defib: No Hx Vascular Disease: No - NEURO Hx Neuro Disorders: No Hx Brain Tumor: No Hx CVA: No Hx Dementia: No Hx Dizziness: No Hx Headaches: No Hx Neuropathy: No Hx Parkinson's Disease: No Hx Seizures: No Hx Speech Problem: No Hx TIA: No - GI Hx GI Disorders: Yes Hx Abdominal Pain: No Hx Celiac Disease: No Hx Crohn's Disease: No Hx Diverticulitis: No Hx GI Bleed: No Hx Reflux: Yes Hx Hepatitis/Jaundice: Yes (Hep C) Hx Hiatal Hernia: Yes Hx Irritable Bowel: No Hx Liver Disease: Yes Hx Nausea/Vomiting: No Hx Obstructive Bowel: No Hx Pancreatitis: Yes Hx Rectal Bleeding: No Hx Ulcer: Yes Hx Wt Loss/Wt Gain: No Hx of Polyps: No - Hx Genitourinary Disorders: Yes Hx Bladder Problem: No Hx Dialysis: No Hx Kidney Stones: No Hx Prostate Problems: No Hx Renal Disease: No Hx UTI: No Comment:: one kidney-L; atypical epididymitis - ENDOCRINE Hx Endocrine Disorders: No Hx Diabetes: No Hx Thyroid Disease: No - MUSCULOSKELETAL Hx Musculoskeletal Disorders: No Hx Arthritis: Yes Hx Back Injury: Yes Hx Fibromyalgia: No Hx Gout: No Hx Musculoskeletal Disease: No Hx Osteoporosis: No - PSYCH Hx Psych Problems: Yes Hx Anxiety: Yes Hx Behavior Problems: No Hx Depression: Yes Hx Emotional Abuse: No Hx Sexual Abuse: No Hx Suicide Attempt: Yes (many years ago) - HEMATOLOGY/ONCOLOGY Hx Hematology/Oncology Disorders: No Hx Anemia: No Hx Blood Disorders: No Hx Bruising: No Hx Cancer: No Hx Clotting Problems: No Hx Sickle Cell Disease: No Hx Unexplained Bleeding: No Hx Blood Transfusions: No Hx Blood Transfusion Reaction: No Family Medical History Any Significant Family History?: No Family Hx Comment (NOT TO BE USED IN PLACE OF ITEMS BELOW): Sister - Mckeon's syndrome Hx Alcohol Use: Father, Mother Hx Anxiety: Brother/Sister Hx Cancer: Mother, Children *Cancer Comment: son with Leukemia Hx Depression: Brother/Sister Hx Diabetes: Father Hx Resp Disorders: Father Hx Stroke: Mother Physical Exam - General General Appearance: Alert, Oriented x3, Cooperative, Mild distress - Head Head exam: Normal inspection - Eye Eye exam: Normal appearance, PERRL, EOMI Pupils: Normal accommodation - ENT ENT exam: Normal exam, Mucous membranes moist, Normal external ear exam, Normal orophraynx Ear exam: Normal external inspection. negative: External canal tenderness Nasal Exam: Normal inspection. negative: Discharge, Sinus tenderness Mouth exam: Normal external inspection, Tongue normal Teeth exam: Normal inspection. negative: Dental caries Throat exam: Normal inspection. negative: Tonsillar erythema, Tonsillar exudate - Neck Neck exam: Normal inspection, Full ROM. negative: Tenderness - Respiratory Respiratory exam: Normal lung sounds bilaterally. negative: Respiratory distress - Cardiovascular Cardiovascular Exam: Regular rate, Normal rhythm, Normal heart sounds - GI/Abdominal GI/Abdominal exam: Soft, Normal bowel sounds. negative: Tenderness - Rectal Rectal exam: Deferred - exam: Deferred - Extremities Extremities exam: Normal inspection, Full ROM, Normal capillary refill. negative: Tenderness - Back Back exam: Reports: Normal inspection, Full ROM. Denies: Muscle spasm, Rash noted, Tenderness - Neurological Neurological exam: Alert, CN II-XII intact, Normal gait, Oriented X3 - Psychiatric Psychiatric exam: Anxious, Depressed - Skin Skin exam: Dry, Intact, Normal color, Warm Course Vital Signs 05/25/19 12:59 Temperature 98.3 F Pulse Rate 66 Respiratory 16 Rate Blood Pressure 146/95 Pulse Ox 96 - Reevaluation(s) Reevaluation #1: 05/25/19 15:29 d/w [facility] who state they have a bed for him. [place] 05/25/19 15:29 Medical Decision Making - Lab Data Result diagrams: 05/25/19 14:04 05/25/19 14:04 Disposition Disposition: Transfer Clinical Impression: Suicidal thoughts Depression Qualifiers: Depression Type: unspecified Qualified Code(s): F32.9 - Major depressive disorder, single episode, unspecified Disposition: Psychiatric Hospital Transfer To: [facility] Reason For Transfer: needs psych Accepting Physician: [facility] Time Discussed w/Accepting Physician: 15:00 Forms: Patient Portal Access Quality - Quality Measures Quality Measures: N/A - Blood Pressure Screening Does Patient Have Any of the Following: No Blood Pressure Classification: Hypertensive Reading Systolic Measurement: 146 Diastolic Measurement: 95 Screening for High Blood Pressure: < First Hypertensive BP, F/U Documented > [G8950] First Hypertensive Follow-up Interventions: Follow-up with rescreen GT 1 day and LT 4 weeks.
[2019-05-25 15:12] LABS: URINE APPEARANCE CLEAR; URINE BILIRUBIN NEGATIVE (NEGATIVE); URINE BLOOD NEGATIVE (NEGATIVE); URINE COLOR YELLOW; URINE GLUCOSE (UA) NEGATIVE (NEGATIVE); URINE KETONE NEGATIVE (NEGATIVE); URINE LEUKOCYTE ESTERASE NEGATIVE (NEGATIVE); URINE NITRITE NEGATIVE (NEGATIVE); URINE UROBILINOGEN 0.2 E.U./dL (0.20 - 1.00)
[2019-05-25 15:15] LABS: URINE PROTEIN 300 mg/dL (NEGATIVE)
[2019-05-25 15:44] LABS: AMPHETAMINE SCREEN URINE NOT DETECTED; BARBITURATE SCREEN URINE NOT DETECTED; BENZODIAZEPINE SCREEN URINE NOT DETECTED; COCAINE SCREEN URINE NOT DETECTED; METHADONE SCREEN URINE NOT DETECTED; METHAMPHETAMINE SCREEN NOT DETECTED; OPIATE SCREEN URINE NOT DETECTED; OXYCODONE SCREEN URINE NOT DETECTED; PHENCYCLIDINE SCREEN URINE NOT DETECTED; PROPOXYPHENE SCREEN URINE NOT DETECTED; THC SCREEN URINE NOT DETECTED; TRICYCLIC ANTIDEPRESSANT SCRN NOT DETECTED
== END 2019-05-25 15:58 ==
LOC: ER 12:47
DX: R45.851 Suicidal ideations (principal); F32.9 Major depressive disorder, single episode, unspecified; R11.2 Nausea with vomiting, unspecified; F17.210 Nicotine dependence, cigarettes, uncomplicated
CPT/HCPCS: 99285 ×2; 85025; 80053; 81003; 84443; 80305; G0480; 80320

== ENCOUNTER 2019-09-26 16:07 | Emergency (ER) | payer OTHER, MEDICAID ==
--- NOTE | 2019-09-26 16:25 | Emergency Department Record ---
History of Present Illness - General Chief Complaint: Chest Pain Stated Complaint: CHEST PAIN,DIZZINESS Time Seen by Provider: 09/26/19 16:20 Source: Patient Mode of Arrival: Ambulatory Limitations: No limitations - History of Present Illness Initial Comments: The patient is here due to a 2 day hx of intermittent lower chest aching. The aching comes and goes and lasts minutes at a time. The patient denies any SOB, ROSA, sweating or nausea with the pain. The pain is not exertional and not related to eating. Presently he has no pain or discomfort. The patient states his only cardiac risk factor is tobacco use. MD Complaint: Chest pain Onset/Timin -: Days(s) Pain Location: Substernal, Epigastric Severity: Moderate Severity scale (1-10): 4 - Related Data Home Medications Medication Instructions Recorded Confirmed Last Taken Krill/Om-3/Dha/Epa/Phospho/Ast 1 each PO DAILY 09/26/19 09/26/19 1 Day Ago [[place]-3 Krill Oil 1,000 mg] ~09/25/19 Vitamin E (Dl,Tocopheryl Acet) 400 unit PO DAILY 09/26/19 09/26/19 1 Day Ago [Vitamin E] ~09/25/19 Allergies Allergy/AdvReac Type Severity Reaction Status Date / Time atorvastatin calcium AdvReac Mild BODY ACHES Verified 09/26/19 16:18 [From Lipitor] sulfamethoxazole AdvReac Mild VOMITING Verified 09/26/19 16:18 [From Bactrim] trimethoprim [From Bactrim] AdvReac Mild VOMITING Verified 09/26/19 16:18 Travel Screening - Travel/Exposure Within Last 30 Days Have you traveled within the last 30 days?: Yes Location Detail:: [place], drove - Travel/Exposure Within Last Year Have you traveled outside the [place] in the last year?: No - Additonal Travel Details Have you been exposed to anyone with a communicable illness?: No - Travel Symptoms Symptom Screening: None Review of Systems Constitutional: Denies: Chills, Fever Eyes: Denies: Eye discharge ENT: Denies: Congestion Respiratory: Denies: Cough, Dyspnea Cardiovascular: Denies: Arrhythmia Endocrine: Denies: Fatigue Gastrointestinal: Denies: Diarrhea Genitourinary: Denies: Dysuria Musculoskeletal: Denies: Arthralgia, Back pain Neurological: Denies: Abnormal gait Past Medical History - SOCIAL HISTORY Smoking Status: Former smoker - RESPIRATORY Hx Respiratory Disorders: Yes Hx Asthma: Yes Hx Bronchitis: Yes Hx COPD: Yes Hx Dyspnea: Yes Hx Pneumonia: Yes Hx Pulmonary Embolism: No Hx Sleep Apnea: Yes Hx Tuberculosis: No Hx of CPAP: Yes - CARDIOVASCULAR Hx Cardio Disorders: No Hx Abnormal EKG: No Hx Cardiac Cath: No Hx Chest Pain: No Hx CHF: No Hx Deep Vein Thrombosis: No Hx Edema: No Hx Heart Attack: No Hx Hypertension: No Hx Hypotension: No Hx Irregular Heartbeat: No Hx Palpitations: No Hx Pacemaker/Defib: No Hx Vascular Disease: No - NEURO Hx Neuro Disorders: No Hx Brain Tumor: No Hx CVA: No Hx Dementia: No Hx Dizziness: No Hx Headaches: No Hx Neuropathy: No Hx Parkinson's Disease: No Hx Seizures: No Hx Speech Problem: No Hx TIA: No - GI Hx GI Disorders: Yes Hx Abdominal Pain: No Hx Celiac Disease: No Hx Crohn's Disease: No Hx Diverticulitis: No Hx GI Bleed: No Hx Reflux: Yes Hx Hepatitis/Jaundice: Yes (Hep C) Hx Hiatal Hernia: Yes Hx Irritable Bowel: No Hx Liver Disease: Yes Hx Nausea/Vomiting: No Hx Obstructive Bowel: No Hx Pancreatitis: Yes Hx Rectal Bleeding: No Hx Ulcer: Yes Hx Wt Loss/Wt Gain: No Hx of Polyps: No - Hx Genitourinary Disorders: Yes Hx Bladder Problem: No Hx Dialysis: No Hx Kidney Stones: No Hx Prostate Problems: No Hx Renal Disease: No Hx UTI: No Comment:: one kidney-L; atypical epididymitis - ENDOCRINE Hx Endocrine Disorders: No Hx Diabetes: No Hx Thyroid Disease: No - MUSCULOSKELETAL Hx Musculoskeletal Disorders: No Hx Arthritis: Yes Hx Back Injury: Yes Hx Fibromyalgia: No Hx Gout: No Hx Musculoskeletal Disease: No Hx Osteoporosis: No - PSYCH Hx Psych Problems: Yes Hx Anxiety: Yes Hx Behavior Problems: No Hx Depression: Yes Hx Emotional Abuse: No Hx Sexual Abuse: No Hx Suicide Attempt: Yes (many years ago) - HEMATOLOGY/ONCOLOGY Hx Hematology/Oncology Disorders: No Hx Anemia: No Hx Blood Disorders: No Hx Bruising: No Hx Cancer: No Hx Clotting Problems: No Hx Sickle Cell Disease: No Hx Unexplained Bleeding: No Hx Blood Transfusions: No Hx Blood Transfusion Reaction: No Family Medical History Any Significant Family History?: Yes Family Hx Comment (NOT TO BE USED IN PLACE OF ITEMS BELOW): Sister - Mckeon's syndrome Hx Alcohol Use: Father, Mother Hx Anxiety: Brother/Sister Hx Cancer: Mother, Children *Cancer Comment: son with Leukemia Hx Depression: Brother/Sister Hx Diabetes: Father Hx Resp Disorders: Father Hx Stroke: Mother Physical Exam - General General Appearance: Alert, Oriented x3, Cooperative, No acute distress - Head Head exam: Atraumatic, Normocephalic, Normal inspection - Eye Eye exam: Normal appearance, PERRL, EOMI - ENT Throat exam: Normal inspection. negative: Tonsillar erythema, Tonsillar exudate - Neck Neck exam: Normal inspection, Full ROM. negative: Tenderness - Respiratory Respiratory exam: Normal lung sounds bilaterally. negative: Respiratory distress - Cardiovascular Cardiovascular Exam: Regular rate, Normal rhythm, Normal heart sounds - GI/Abdominal GI/Abdominal exam: Soft, Normal bowel sounds. negative: Rebound, Rigid, Tenderness - Extremities Extremities exam: Normal inspection, Full ROM, Normal capillary refill. negative: Tenderness - Neurological Neurological exam: Alert, Normal gait. negative: Abnormal gait, Motor sensory deficit - Skin Skin exam: negative: Rash Course Vital Signs 09/26/19 16:11 Temperature 97.9 F Pulse Rate 71 Respiratory 18 Rate Blood Pressure 148/91 Pulse Ox 97 - Reevaluation(s) Reevaluation #1: The patient is doing better at this time and denies any pain or discomfort. I did discuss the lab and ekg and cxr results with him and did recommend a short stay admission but the patient is refusing. I explained the risks of going home are that the patient could go home and have an OK, stroke, become disabled and even . The patient understands and accepts the risks. He presently has proper decision making capacity and fully understands the risks of leaving AMA. I then did recommend that he see his PCP this week to have the symptoms evaluated further. 09/26/19 18:33 Medical Decision Making - Data Complexity MDM Data: Labs Ordered and/or Reviewed, X-Ray Ordered and/or Reviewed, EKG Ordered and/or Reviewed - Lab Data Result diagrams: 09/26/19 16:35 09/26/19 16:35 - EKG Data -: EKG Interpreted by Me EKG: No Acute Changes (RBBB with no injury pattern.) - Radiology Data Radiology results: Report reviewed (CXR: Neg for any acute changes.) Disposition Disposition: Discharge Clinical Impression: Chest pain, atypical Disposition: Against Medical Advice Condition: (2) Stable Instructions: Chest Pain (ED) Additional Instructions: Please continue your regular medicines and please use Tylenol if needed for pain. Please see your doctor for recheck of your pain for further testing. Return to the ER for any worsening pain, fever, trouble breathing or shortness of breath. Forms: Patient Portal Access Time of Disposition: 18:32 Quality - Quality Measures Quality Measures: N/A - Blood Pressure Screening View Details: Yes Does Patient Have Any of the Following: No Blood Pressure Classification: Hypertensive Reading Systolic Measurement: 148 Diastolic Measurement: 91 Screening for High Blood Pressure: < First Hypertensive BP, F/U Documented > [G8950] First Hypertensive Follow-up Interventions: Referral to alternative/primary care provider.
[2019-09-26] MEDS ORDERED: SUCRALFATE 1 G/10 ML UD PO ONE (16:29)
[2019-09-26 17:04] LABS: ABSOLUTE NEUTROPHIL COUNT 4.24; BASO % 0.3 % (0-6); HEMATOCRIT 38.4 % (42.0-52.0); HEMOGLOBIN 12.8 gm/dl (14.0-18.0); LYMPH % 21.6 % (16-45); MEAN CELL VOLUME 85.3 fl (81-97); MEAN CORPUSCULAR HEMOGLOBIN 28.4 pg (27-33); MEAN CORPUSCULAR HGB CONC 33.3 g/dl (32-36); MEAN PLATELET VOLUME 9.6 fl (7.4-10.4); MONO % 7.1 % (0-9); PLATELET COUNT 261 K/uL (130-400); RED CELL DISTRIBUTION WIDTH 13.6 % (11.5-14.5); WHITE BLOOD COUNT W/O DIFF 6.2 K/uL (4.2-12.2)
--- NOTE | 2019-09-26 17:17 | RADIOLOGY REPORT ---
. EXAMINATION: CHEST 2 VIEWS EXAM DATE: 09/26/2019 4:46 PM TECHNIQUE: Frontal and lateral views of the chest INDICATION: lower anterior chest pain. COMPARISON: 03/07/2018 FINDINGS: The cardiomediastinal silhouette is normal. The lungs are clear. No evidence of pneumonia or pulmonary edema. A 6 mm nodular lesion overlying the left 9th rib is unchanged since 03/07/2018. This lesion may be calcified. No pneumothorax or pleural effusion. Left shoulder arthroplasty. IMPRESSION: 1. No acute pulmonary process. 2. Nodular density in the left lung is unchanged from 2018 and may be calcified. This could be confi rmed with CT on a nonemergent basis. Dictated by: Jonathon Haines MD on 09/26/2019 5:11 PM. .
[2019-09-26 17:22] LABS: PARTIAL THROMBOPLASTIN TIME 26.6 SECONDS (24.5-39.1); PROTHROMBIN TIME (PATIENT) 10.4 SECONDS (9.5-12.1)
[2019-09-26 17:44] LABS: BLOOD UREA NITROGEN 20 mg/dL (6-20); CREATININE 1.2 mg/dL (0.7-1.2); EST GLOMERULAR FILTRATION RATE > 60 mL/min
[2019-09-26 17:45] LABS: TOTAL PROTEIN 7.1 g/dL (6.6-8.7)
[2019-09-26 17:47] LABS: GLUCOSE,RANDOM 117 mg/dL (74-109)
[2019-09-26 17:49] LABS: ALB/GLOB RATIO 1.4 (1.1-1.8); ALBUMIN 4.2 g/dL (4.0-5.0); ALT/SGPT 17 U/L (<41); AST/SGOT 21 U/L (10.0-50.0)
[2019-09-26 17:50] LABS: ALKALINE PHOSPHATASE 100 U/L (40-129); CREATINE PHOSPHOKINASE 103 U/L (39-308)
== END 2019-09-26 18:50 | disposition left against medical advice (07) ==
LOC: ER 16:07
DX: R07.89 Other chest pain (principal); R42 Dizziness and giddiness; R10.13 Epigastric pain; Z87.891 Personal history of nicotine dependence
CPT/HCPCS: 71046; 80053; 82550; 82553; 84484; 85025; 85610; 85730; 93005; 93010; 99285

== ENCOUNTER 2019-12-07 06:46 | Emergency (ER) | payer OTHER, MEDICAID ==
[2019-12-07] MEDS ORDERED: IPRATROPIUM/ALBUTEROL (0.5MG/3MG) NEB INH ONE (07:07)
--- NOTE | 2019-12-07 07:07 | Emergency Department Record ---
History of Present Illness - General Chief Complaint: Shortness of breath Stated Complaint: Time Seen by Provider: 12/07/19 06:59 Source: Patient Mode of Arrival: Ambulatory - History of Present Illness Initial Comments: The patient states he has been sick with respiratory infection for over a week. On 11-29-19- he went to Urgent Care and was given Augmentin for a respiratory and ear infection. He took his last Augmentin yesterday, but continues to have a cough productive of yellow sputum. He denies fevers, chills, or shortness of breath now. He continues to cough which has interfered with his sleep. He sometimes gets steroids when he is like this. He has clear nasal drainage as well. His throat is now OK, but his right ear continues to be uncomfortable. Last night he began wheezing with shortness of breath and chest tightness. He gave himself his rescue inhaler. He also is taking his Symbicort. These inhalers relieved his symptoms. Earl is a > 20 year smoker who quit 4 months ago. He states he has asthma, and a history of pneumonia. Onset/Timin -: Days(s) Improves With: Medication Worsens With: Exertion, Movement Known History Of: Asthma, COPD Context: Recent illness, Recent URI Associated Symptoms: Cough, Fever, Sputum production Treatments Prior to Arrival: Bronchodilator, Other - Related Data Home Oxygen Therapy: No Home Medications Medication Instructions Recorded Confirmed Last Taken Aripiprazole 2 mg PO DAILY 12/07/19 12/07/19 Unknown Escitalopram Oxalate [Lexapro] 10 mg PO DAILY 12/07/19 12/07/19 Unknown Previous Rx's Medication Instructions Recorded Prednisone [Prednisone 20Mg] 20 mg PO DAILY #20 tab 12/07/19 Allergies Allergy/AdvReac Type Severity Reaction Status Date / Time atorvastatin calcium AdvReac Mild BODY ACHES Verified 12/07/19 06:57 [From Lipitor] sulfamethoxazole AdvReac Mild VOMITING Verified 12/07/19 06:57 [From Bactrim] trimethoprim [From Bactrim] AdvReac Mild VOMITING Verified 12/07/19 06:57 Travel Screening - Travel/Exposure Within Last 30 Days Have you traveled within the last 30 days?: No - Travel/Exposure Within Last Year Have you traveled outside the [place] in the last year?: No - Additonal Travel Details Have you been exposed to anyone with a communicable illness?: No - Travel Symptoms Symptom Screening: None Review of Systems Reviewed: No additional complaints except as noted below Constitutional: Reports: As per HPI. Denies: Chills, Fever, Malaise, Night sweats, Weakness, Weight change Eyes: Reports: As per HPI. Denies: Eye discharge, Eye pain, Photophobia, Vision change ENT: Reports: As per HPI. Denies: Congestion, Dental pain, Ear pain, Epistaxis, Hearing loss, Throat pain Respiratory: Reports: As per HPI. Denies: Cough, Dyspnea, Hemoptysis, Stridor, Wheezes Cardiovascular: Reports: As per HPI. Denies: Arrhythmia, Chest pain, Dyspnea on exertion, Edema, Murmurs, Orthopnea, Palpitations, Paroxysmal nocturnal dyspnea, Rheumatic Fever, Syncope Endocrine: Reports: As per HPI. Denies: Fatigue, Heat or cold intolerance, Polydipsia, Polyuria Gastrointestinal: Reports: As per HPI. Denies: Abdominal pain, Constipation, Diarrhea, Hematemesis, Hematochezia, Melena, Nausea, Vomiting Genitourinary: Reports: As per HPI. Denies: Dysuria, Frequency, Hematuria, Incontinence, Retention, Testicular pain, Testicular mass, Urgency Musculoskeletal: Reports: As per HPI. Denies: Arthralgia, Back pain, Gout, Joint swelling, Myalgia, Neck pain Skin: Reports: As per HPI. Denies: Bruising, Change in color, Change in hair/nails, Lesions, Pruritus, Rash Neurological: Reports: As per HPI. Denies: Abnormal gait, Confusion, Headache, Numbness, Paresthesias, Seizure, Tingling, Tremors, Vertigo, Weakness Psychiatric: Reports: As per HPI. Denies: Anxiety, Auditory hallucinations, Depression, Homicidal thoughts, Suicidal thoughts, Visual hallucinations Hematological/Lymphatic: Reports: As per HPI. 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 Drug Use: None - RESPIRATORY Hx Respiratory Disorders: Yes Hx Asthma: Yes Hx Bronchitis: Yes Hx COPD: Yes Hx Dyspnea: Yes Hx Pneumonia: Yes Hx Pulmonary Embolism: No Hx Sleep Apnea: Yes Hx Tuberculosis: No Hx of CPAP: Yes - CARDIOVASCULAR Hx Cardio Disorders: No Hx Abnormal EKG: No Hx Cardiac Cath: No Hx Chest Pain: No Hx CHF: No Hx Deep Vein Thrombosis: No Hx Edema: No Hx Heart Attack: No Hx Hypertension: No Hx Hypotension: No Hx Irregular Heartbeat: No Hx Palpitations: No Hx Pacemaker/Defib: No Hx Vascular Disease: No - NEURO Hx Neuro Disorders: No Hx Brain Tumor: No Hx CVA: No Hx Dementia: No Hx Dizziness: No Hx Headaches: No Hx Neuropathy: No Hx Parkinson's Disease: No Hx Seizures: No Hx Speech Problem: No Hx TIA: No - GI Hx GI Disorders: Yes Hx Abdominal Pain: No Hx Celiac Disease: No Hx Crohn's Disease: No Hx Diverticulitis: No Hx GI Bleed: No Hx Reflux: Yes Hx Hepatitis/Jaundice: Yes (Hep C) Hx Hiatal Hernia: Yes Hx Irritable Bowel: No Hx Liver Disease: No Hx Nausea/Vomiting: No Hx Obstructive Bowel: No Hx Pancreatitis: Yes Hx Rectal Bleeding: No Hx Ulcer: Yes Hx Wt Loss/Wt Gain: No Hx of Polyps: No - Hx Genitourinary Disorders: Yes Hx Bladder Problem: No Hx Dialysis: No Hx Kidney Stones: No Hx Prostate Problems: No Hx Renal Disease: No Hx UTI: No Comment:: one kidney-L; atypical epididymitis - ENDOCRINE Hx Endocrine Disorders: No Hx Diabetes: No Hx Thyroid Disease: No - MUSCULOSKELETAL Hx Musculoskeletal Disorders: No Hx Arthritis: Yes Hx Back Injury: Yes Hx Fibromyalgia: No Hx Gout: No Hx Musculoskeletal Disease: No Hx Osteoporosis: No - PSYCH Hx Psych Problems: Yes Hx Anxiety: Yes Hx Behavior Problems: No Hx Depression: Yes Hx Emotional Abuse: No Hx Sexual Abuse: No Hx Suicide Attempt: Yes (many years ago) - HEMATOLOGY/ONCOLOGY Hx Hematology/Oncology Disorders: No Hx Anemia: No Hx Blood Disorders: No Hx Bruising: No Hx Cancer: No Hx Clotting Problems: No Hx Sickle Cell Disease: No Hx Unexplained Bleeding: No Hx Blood Transfusions: No Hx Blood Transfusion Reaction: No Family Medical History Any Significant Family History?: Yes Family Hx Comment (NOT TO BE USED IN PLACE OF ITEMS BELOW): Sister - Mckeon's syndrome Hx Alcohol Use: Father, Mother Hx Anxiety: Brother/Sister Hx Cancer: Mother, Children *Cancer Comment: son with Leukemia Hx Depression: Brother/Sister Hx Diabetes: Father Hx Resp Disorders: Father Hx Stroke: Mother Physical Exam - General General Appearance: Alert, Oriented x3, Cooperative, No acute distress - Head Head exam: Normal inspection - Eye Eye exam: Normal appearance, PERRL, EOMI. negative: Conjunctival injection, Nystagmus Pupils: Normal accommodation - ENT ENT exam: Normal exam, Mucous membranes moist, Normal external ear exam, Normal orophraynx, TM's normal bilaterally Ear exam: Normal external inspection. negative: External canal tenderness Nasal Exam: Normal inspection. negative: Discharge, Sinus tenderness Mouth exam: Normal external inspection, Tongue normal Teeth exam: Normal inspection. negative: Dental caries Throat exam: Normal inspection. negative: Tonsillar erythema, Tonsillar exudate - Neck Neck exam: Normal inspection, Full ROM. negative: Lymphadenopathy, Meningismus, Tenderness - Respiratory Respiratory exam: Normal lung sounds bilaterally, Rhonchi (only with coughing). negative: Chest wall tenderness, Respiratory distress - Cardiovascular Cardiovascular Exam: Regular rate, Normal rhythm, Normal heart sounds - GI/Abdominal GI/Abdominal exam: Soft, Normal bowel sounds. negative: Tenderness - Rectal Rectal exam: Deferred - exam: Deferred - Extremities Extremities exam: Normal inspection, Full ROM, Normal capillary refill. negative: Calf tenderness, Pedal edema, Tenderness - Back Back exam: Reports: Normal inspection, Full ROM. Denies: Muscle spasm, Rash noted, Tenderness - Neurological Neurological exam: Alert, CN II-XII intact, Normal gait, Oriented X3, Reflexes normal. negative: Motor sensory deficit - Psychiatric Psychiatric exam: Normal affect, Normal mood - Skin Skin exam: Dry, Intact, Normal color, Warm Course Vital Signs 12/07/19 06:48 Temperature 97.8 F Pulse Rate 87 Respiratory 20 Rate Blood Pressure 140/83 Pulse Ox 97 Medical Decision Making - Management Options MDM Management: No Additional Work-up Planned Disposition Disposition: Discharge Clinical Impression: Bronchitis Disposition: Home, Self-Care Condition: (1) Good Instructions: COPD (Chronic Obstructive Pulmonary Disease) (ED), Acute Bronchitis (ED), Bronchospasm (ED) Additional Instructions: Continue present medications. Take 20 mg tabs of prednisone as a taper: 3 pills daily for 3 days, 2 pills daily for 3 days, 1 pills daily for 3 days, 1/2 pill daily for 4 days, then stop. Tylenol alternated with ibuprofen as directed as needed for fevers, or aches/pains. Push fluids. Bedside vaporizer. Lozenges and throat sprays in daytime if helpful. PCP follow up as needed if not improving. Prescriptions: Prednisone [Prednisone 20Mg] 20 mg PO DAILY #20 tab Quality - Quality Measures Quality Measures: N/A - Blood Pressure Screening Does Patient Have Any of the Following: No Blood Pressure Classification: Pre-Hypertensive BP Reading Systolic Measurement: 140 Diastolic Measurement: 83 Screening for High Blood Pressure: < Pre-Hypertensive BP, F/U Documented > [[id number]] Pre-Hypertensive Follow-up Interventions: Follow-up with rescreen every year., Lifestyle modifications. Lifestyle Modification: Weight Reduction, Dietary Approaches to Stop Hypertension (DASH) Eating Plan, Dietary Sodium Restriction, Increased Physical Activity, Moderation in alcohol (ETOH) consumption
== END 2019-12-07 07:33 | disposition home or self-care (01) ==
LOC: ER 06:46
DX: J20.9 Acute bronchitis, unspecified (principal); R06.02 Shortness of breath; J44.9 Chronic obstructive pulmonary disease, unspecified; Z87.891 Personal history of nicotine dependence
CPT/HCPCS: 94640; 99283